=== PATIENT | male | born 1945 | race Caucasian/White ===

== ENCOUNTER 2019-03-22 11:54 | Inpatient (IN) | payer MEDICARE, OTHER ==
[~2019-03-22] VITALS: Ht 182.9 cm; Wt 104.5 kg
[2019-03-22] MEDS ORDERED: normal saline 1000ML IV soln IV ONE (12:35)
[2019-03-22] MEDS ORDERED: CefTRIAXone 2gm/D5W 50ml 50 ML IV ONE (12:35)
[2019-03-22 12:59] LABS: BASOPHILS % (AUTO) 0.2 % (0-1); EOSINOPHILS % (AUTO) 0.3 % (0-6); HEMATOCRIT 40.7 % (42.0-52.0); HEMOGLOBIN 13.6 g/dl (14.0-17.9); LYMPHOCYTES # (AUTO) 1.5 X10'3 (1.1-4.8); LYMPHOCYTES % (AUTO) 8.9 % (21-51); MEAN CORPUSCULAR HEMOGLOBIN 30.4 PG (27.0-31.0); MEAN CORPUSCULAR HGB CONC 33.5 g/dL (33.0-36.5); MEAN CORPUSCULAR VOLUME 90.7 FL (78-98); MEAN PLATELET VOLUME 7.4 FL (7.4-10.4); MONOCYTES # (AUTO) 1.2 X10'3 (0-0.9); MONOCYTES % (AUTO) 7.4 % (2-12); NEUTROPHILS # (AUTO) 13.7 X10'3 (1.8-7.7); NEUTROPHILS % (AUTO) 83.2 % (42-75); PLATELET COUNT 350 X10'3 (140-440); RED BLOOD COUNT 4.49 X10'6 (4.70-6.10); RED CELL DISTRIBUTION WIDTH 14.3 % (11.5-14.5); WHITE BLOOD COUNT 16.5 X10'3 (4.5-11.0)
[2019-03-22 13:01] LABS: CLARITY,URINE TURBID (Clear); COLOR,URINE YELLOW (Yellow); GLUCOSE, URINE NEGATIVE (Neg); KETONES,URINE NEGATIVE (Neg); LEUKOCYTE ESTERASE ,URINE MODERATE (Neg); NITRITES, URINE POSITIVE (Neg); OCCULT BLOOD,URINE LARGE (Neg); PROTEIN,URINE >=300 mg/dl (Neg); UROBILINOGEN,URINE 0.2 E.U/dL (0.2-1.0)
[2019-03-22 13:08] LABS: UA COLLECTION TYPE OTHER
[2019-03-22 13:10] LABS: ALANINE AMINOTRANSFERASE 22 U/L (12-78); ALBUMIN 2.5 G/DL (3.4-5.0); ALBUMIN/GLOBULIN RATIO 0.4 (1.1-1.5); ALKALINE PHOSPHATASE 108 IU/L (46-116); ANION GAP 12 (8-16); ASPARTATE AMINO TRANSFERASE 18 U/L (10-37); BILIRUBIN,TOTAL 0.7 MG/DL (0.1-1.0); BLOOD UREA NITROGEN 93 MG/DL (7-18); BUN/CREATININE RATIO 25.5 (5.4-32.0); CALCIUM 10.3 MG/DL (8.5-10.1); CHLORIDE 100 MMOL/L (99-107); CREATININE 3.64 MG/DL (0.60-1.10); GLUCOSE 129 MG/DL (70-104); MAGNESIUM 2.7 MG/DL (1.5-2.4); SODIUM 136 MMOL/L (135-145); TOTAL PROTEIN 8.8 G/DL (6.4-8.2); eGFR 16 ML/MIN
[2019-03-22 13:12] LABS: PARTIAL THROMBOPLASTIN TIME 27 SECONDS (22-32)
[2019-03-22 13:16] LABS: BACTERIA,URINE 3+ /HPF (Neg); RBC,URINE TNTC /HPF (0-2); WBC,URINE TNTC /HPF (0-4)
[2019-03-22 13:17] LABS: SQUAMOUS EPITHELIAL CELL,UR FEW /LPF (FEW); TRANSITIONAL EPI CELLS,URINE FEW /HPF
[2019-03-22 13:18] LABS: AMORPHOUS URATES 2+; RENAL CELLS, URINE MODERATE /HPF; WBC CLUMPS,URINE FEW /HPF (NEGATIVE)
[2019-03-22 13:19] LABS: MUCUS STRANDS FEW /LPF (Neg)
[2019-03-22] MEDS ORDERED: ondansetron/PF 4mg/2ml inj IV PRN (14:15)
[2019-03-22] MEDS ORDERED: potassium CL 10mEq/100ml bag 100 ML IV PRN (14:15)
[2019-03-22] MEDS ORDERED: magnesium 2GM in 50ml NS 50 ML IV PRN (14:15)
[2019-03-22] MEDS ORDERED: magnesium Cl slow-release 64mg tablet PO PRN (14:15)
[2019-03-22] MEDS ORDERED: potassium Cl 40MEQ/NS 500ml 500 ML IV PRN (14:15)
[2019-03-22] MEDS ORDERED: magnesium hydroxide 30ml (MOM) UD suspension PO PRN (14:15)
[2019-03-22] MEDS ORDERED: acetaminophen 325mg tablet PO PRN ×2 (14:15)
[2019-03-22] MEDS ORDERED: potassium Cl 20 mEq SR tablet PO PRN (14:15)
[2019-03-22] MEDS ORDERED: mag hydrox/Alum hydrox/simeth 30ml oral suspension PO PRN (14:15)
[2019-03-22] MEDS ORDERED: magnesium 4gm in 100ml NS 100 ML IV PRN (14:15)
--- NOTE | 2019-03-22 15:00 | NUR ---
Report received from ED RNYoly.
[2019-03-22 15:30] VITALS: BP 104/43
--- NOTE | 2019-03-22 15:30 | NUR ---
Pt arrived to room 360B from ED.
[2019-03-22] MEDS ORDERED: CITA20TA28 PO (15:48)
[2019-03-22] MEDS ORDERED: KETOCONAZOLE TOP (15:48)
[2019-03-22] MEDS ORDERED: HYDR-4353 PO (15:48)
[2019-03-22] MEDS ORDERED: CALC300T4 PO (15:48)
[2019-03-22] MEDS ORDERED: LOPE2TAB25 PO (15:48)
[2019-03-22] MEDS ORDERED: METO50TA17 PO (15:48)
[2019-03-22] MEDS ORDERED: ATOR40TA PO (15:48)
[2019-03-22] MEDS ORDERED: TRIAMTERENE 37.5 MG PO (15:48)
[2019-03-22] MEDS ORDERED: MULT1TAB74 PO (15:48)
[2019-03-22] MEDS ORDERED: PROP300T2 PO (15:48)
[2019-03-22] MEDS: heparin, porcine 5000 units/ml vial SQ SCH (17:45)
[2019-03-22] MEDS: normal saline 1000ml 1,000 ML IV SCH (17:45)
--- NOTE | 2019-03-22 18:30 | NUR ---
Problems reprioritized. Patient report given, questions answered & plan of care reviewed with VIRAJ Reyez.
--- NOTE | 2019-03-22 18:47 | NUR ---
Patient in room [facility] 360. I have received report from Marjan Alex and had the opportunity to ask questions and assume patient care. Addendum: 03/22/19 at 1848 by Aissatou Miguel RN Amended: Links added.
[2019-03-22 18:50] VITALS: BP 104/43
[2019-03-22] MEDS ORDERED: loperamide 2mg capsule PO PRN (18:50)
[2019-03-22] MEDS ORDERED: calcium carbonate 500mg chew tablet PO PRN (18:50)
--- NOTE | 2019-03-22 20:00 | NUR ---
nephrostomy tube on left side of back with pigtail in place and noted in the bag 400 cc yellow urine and emptied it. dressing to site dry and intact. pt wearing underpants with a pad with no leakage at this time from his bladder.
--- NOTE | 2019-03-22 21:05 | NUR ---
called to check on pt and tolerated well. pt awoke took his medications then dozed back off to sleep.
[2019-03-22] MEDS: atorvastatin 20mg tablet PO SCH (21:17)
[2019-03-22] MEDS: metoprolol tartrate 50mg tablet PO SCH (21:17)
[2019-03-22] MEDS: HYDROcodone/acetaminophen 10/325mg tab PO SCH (21:18)
[2019-03-22] MEDS: propafenone 150mg tablet PO SCH (21:19)
--- NOTE | 2019-03-22 23:00 | NUR ---
pt resting eyes closed without s&s of distress at this time.
[2019-03-23] VITALS: BP 90/37
[2019-03-23] MEDS: normal saline 1000ml 1,000 ML IV SCH ×4 (00:11→23:47)
--- NOTE | 2019-03-23 00:32 | NUR ---
pt awaken for heparin sq dose of medication no complaints at this time.
[2019-03-23] MEDS: heparin, porcine 5000 units/ml vial SQ SCH ×3 (00:37→17:02)
--- NOTE | 2019-03-23 02:30 | NUR ---
pt appears comfortable resting without changes.
[2019-03-23 05:21] LABS: BASOPHILS % (AUTO) 0.4 % (0-1); EOSINOPHILS # (AUTO) 0.1 X10'3 (0-0.9); EOSINOPHILS % (AUTO) 1.1 % (0-6); HEMATOCRIT 32.2 % (42.0-52.0); HEMOGLOBIN 10.7 g/dl (14.0-17.9); LYMPHOCYTES # (AUTO) 1.4 X10'3 (1.1-4.8); LYMPHOCYTES % (AUTO) 10.6 % (21-51); MEAN CORPUSCULAR HEMOGLOBIN 29.9 PG (27.0-31.0); MEAN CORPUSCULAR HGB CONC 33.2 g/dL (33.0-36.5); MEAN PLATELET VOLUME 7.4 FL (7.4-10.4); MONOCYTES # (AUTO) 1.3 X10'3 (0-0.9); MONOCYTES % (AUTO) 9.4 % (2-12); NEUTROPHILS # (AUTO) 10.6 X10'3 (1.8-7.7); NEUTROPHILS % (AUTO) 78.5 % (42-75); PLATELET COUNT 253 X10'3 (140-440); RED BLOOD COUNT 3.57 X10'6 (4.70-6.10); RED CELL DISTRIBUTION WIDTH 13.9 % (11.5-14.5); WHITE BLOOD COUNT 13.5 X10'3 (4.5-11.0)
[2019-03-23 05:44] LABS: ALBUMIN 1.9 G/DL (3.4-5.0); ANION GAP 12 (8-16); BLOOD UREA NITROGEN 74 MG/DL (7-18); BUN/CREATININE RATIO 29.8 (5.4-32.0); CALCIUM 8.4 MG/DL (8.5-10.1); CHLORIDE 106 MMOL/L (99-107); CREATININE 2.48 MG/DL (0.60-1.10); GLUCOSE 92 MG/DL (70-104); MAGNESIUM 2.1 MG/DL (1.5-2.4); POTASSIUM 3.2 MMOL/L (3.5-5.1); SODIUM 141 MMOL/L (135-145); TOTAL CARBON DIOXIDE 23.1 MMOL/L (24-32); eGFR 26 ML/MIN
--- NOTE | 2019-03-23 06:05 | NUR ---
Problems reprioritized. Patient report given, questions answered & plan of care reviewed with Julia Alex. Addendum: 03/23/19 at 0606 by Aissatou Miguel RN Amended: Links added.
--- NOTE | 2019-03-23 07:02 | NUR ---
Patient in room [facility] 360. I have received report from Roxy CALI and had the opportunity to ask questions and assume patient care.
[2019-03-23 07:05] VITALS: BP 129/54
[2019-03-23] MEDS: K and/or MAG REPLACEMENT MC SCH (08:00)
[2019-03-23] MEDS: TRIAMTERENE 37.5 MG PO SCH (08:00)
[2019-03-23] MEDS ORDERED: ketoconazole 2% cream 15gm TP PRN (08:00)
[2019-03-23] MEDS: CefTRIAXone 2gm/D5W 50ml 50 ML IV SCH (08:41)
[2019-03-23] MEDS: citalopram 20mg tablet PO SCH (08:42)
[2019-03-23] MEDS: multivitamins, therapeutics tablet PO SCH (08:42)
[2019-03-23] MEDS: metoprolol tartrate 50mg tablet PO SCH ×2 (08:42→20:54)
[2019-03-23] MEDS: propafenone 150mg tablet PO SCH ×2 (08:42→20:53)
[2019-03-23] MEDS: HYDROcodone/acetaminophen 10/325mg tab PO SCH ×2 (08:42→20:53)
[2019-03-23] MEDS: potassium Cl 20 mEq SR tablet PO PRN ×3 (08:43→20:53)
--- NOTE | 2019-03-23 08:56 | NUR ---
Spoke to patients Herminia she will bring in patients home medication Triamterene and bring to nurses station when she comes in today.
[2019-03-23 11:00] VITALS: BP 104/50
--- NOTE | 2019-03-23 18:35 | NUR ---
Problems reprioritized. Patient report given, questions answered & plan of care reviewed with Wanda CALI.
[2019-03-23 20:00] VITALS: BP 122/42
[2019-03-23] MEDS: lactobacillus rhamnosus 10,000 MMU CELLS/CAPSULE PO SCH (20:53)
[2019-03-23] MEDS: atorvastatin 20mg tablet PO SCH (20:53)
[2019-03-24] VITALS: BP 111/52
[2019-03-24] MEDS: heparin, porcine 5000 units/ml vial SQ SCH ×2 (00:45→08:23)
[2019-03-24 05:21] LABS: BASOPHILS # (AUTO) 0.1 X10'3 (0-0.2); BASOPHILS % (AUTO) 1.2 % (0-1); EOSINOPHILS # (AUTO) 0.2 X10'3 (0-0.9); EOSINOPHILS % (AUTO) 2.1 % (0-6); HEMATOCRIT 32.5 % (42.0-52.0); HEMOGLOBIN 10.8 g/dl (14.0-17.9); LYMPHOCYTES # (AUTO) 1.5 X10'3 (1.1-4.8); LYMPHOCYTES % (AUTO) 15.4 % (21-51); MEAN CORPUSCULAR HEMOGLOBIN 30.2 PG (27.0-31.0); MEAN CORPUSCULAR HGB CONC 33.3 g/dL (33.0-36.5); MEAN CORPUSCULAR VOLUME 90.7 FL (78-98); MEAN PLATELET VOLUME 7.2 FL (7.4-10.4); MONOCYTES % (AUTO) 10.5 % (2-12); NEUTROPHILS # (AUTO) 6.7 X10'3 (1.8-7.7); NEUTROPHILS % (AUTO) 70.8 % (42-75); PLATELET COUNT 217 X10'3 (140-440); RED BLOOD COUNT 3.58 X10'6 (4.70-6.10); RED CELL DISTRIBUTION WIDTH 14.2 % (11.5-14.5); WHITE BLOOD COUNT 9.5 X10'3 (4.5-11.0)
[2019-03-24 05:55] LABS: ALBUMIN 1.9 G/DL (3.4-5.0); ANION GAP 13 (8-16); BLOOD UREA NITROGEN 56 MG/DL (7-18); BUN/CREATININE RATIO 31.6 (5.4-32.0); CALCIUM 8.7 MG/DL (8.5-10.1); CHLORIDE 111 MMOL/L (99-107); CREATININE 1.77 MG/DL (0.60-1.10); GLUCOSE 85 MG/DL (70-104); MAGNESIUM 1.6 MG/DL (1.5-2.4); POTASSIUM 3.4 MMOL/L (3.5-5.1); SODIUM 147 MMOL/L (135-145); TOTAL CARBON DIOXIDE 23.3 MMOL/L (24-32); eGFR 38 ML/MIN
--- NOTE | 2019-03-24 06:40 | NUR ---
Problems reprioritized. Patient report given, questions answered & plan of care reviewed with Julia CALI.
--- NOTE | 2019-03-24 06:54 | NUR ---
Patient in room [facility] 360. I have received report from Wanda CALI and had the opportunity to ask questions and assume patient care.
[2019-03-24 07:00] VITALS: BP 138/51
[2019-03-24] MEDS: K and/or MAG REPLACEMENT MC SCH (08:00)
[2019-03-24] MEDS: TRIAMTERENE 37.5 MG PO SCH (08:00)
[2019-03-24] MEDS: CefTRIAXone 2gm/D5W 50ml 50 ML IV SCH (08:13)
[2019-03-24] MEDS: potassium Cl 20 mEq SR tablet PO PRN (08:14)
[2019-03-24] MEDS: propafenone 150mg tablet PO SCH (08:14)
[2019-03-24 08:15] VITALS: BP_SYST 138
[2019-03-24] MEDS: lactobacillus rhamnosus 10,000 MMU CELLS/CAPSULE PO SCH (08:15)
[2019-03-24] MEDS: metoprolol tartrate 50mg tablet PO SCH (08:15)
[2019-03-24] MEDS: citalopram 20mg tablet PO SCH (08:15)
[2019-03-24] MEDS: HYDROcodone/acetaminophen 10/325mg tab PO SCH (08:15)
[2019-03-24] MEDS: normal saline 1000ml 1,000 ML IV SCH (08:22)
[2019-03-24] MEDS: multivitamins, therapeutics tablet PO SCH (08:22)
[2019-03-24] MEDS ORDERED: LEVO500T2 PO (09:36)
--- NOTE | 2019-03-24 09:56 | NUR ---
Per Dr Mclaughlin hold patients home medication today
--- NOTE | 2019-03-24 11:30 | NUR ---
Patients discharge instructions reviewed with patient and patients at bedside. All questions answered. Patients IV dc'd cannula intact. Patients and state they have all belongings. Patients medication held in pharmacy given to patient on discharge. Patient was taken to the vehicle via wheelchair by [facility].
== END 2019-03-24 11:30 | disposition home or self-care (01) | DRG 682 ==
LOC: ER 11:55 → SUR 3N 15:07 → CMPBEDREQ 19:47
PROVIDERS: ADMIT Hospitalist; ATTEND Internal Medicine
DX: N17.9 Acute kidney failure, unspecified (principal); G93.41 Metabolic encephalopathy; E43 Unspecified severe protein-calorie malnutrition; N39.0 Urinary tract infection, site not specified; E86.0 Dehydration; E87.6 Hypokalemia; F32.9 Major depressive disorder, single episode, unspecified; G89.29 Other chronic pain; E83.52 Hypercalcemia; R03.0 Elevated blood-pressure reading, without diagnosis of hypertension; M54.9 Dorsalgia, unspecified; D64.9 Anemia, unspecified; E78.5 Hyperlipidemia, unspecified; I48.0 Paroxysmal atrial fibrillation; Z79.899 Other long term (current) drug therapy; Z85.118 Personal history of other malignant neoplasm of bronchus and lung; Z87.442 Personal history of urinary calculi; Z90.49 Acquired absence of other specified parts of digestive tract; Z93.6 Other artificial openings of urinary tract status; Z88.1 Allergy status to other antibiotic agents; Z88.2 Allergy status to sulfonamides; Z68.31 Body mass index [BMI] 31.0-31.9, adult
CPT/HCPCS: 36415; 71045; 74176; 80048; 80053; 81001; 83605; 83735; 84145; 85025; 85610; 85730; 87040; 87070; 87077; 87088; 87186; 93005; 96365; 99285; G0378; J0696; J1644; J7030

== ENCOUNTER 2019-04-02 12:35 | Emergency (ER) | payer MEDICARE, OTHER ==
[~2019-04-02] VITALS: Ht 182.9 cm; Wt 100.3 kg
[~2019-04-02 12:35] MED LIST: ATOR40TA PO; CALC300T4 PO; CITA20TA28 PO; HYDR-4353 PO; KETOCONAZOLE TOP; LEVO500T2 PO; LOPE2TAB25 PO; METO50TA17 PO; MULT1TAB74 PO; PROP300T2 PO; TRIAMTERENE 37.5 MG PO
[2019-04-02 13:30] LABS: BASOPHILS # (AUTO) 0.1 X10'3 (0-0.2); BASOPHILS % (AUTO) 1.3 % (0-1); EOSINOPHILS # (AUTO) 0.1 X10'3 (0-0.9); EOSINOPHILS % (AUTO) 1.1 % (0-6); HEMATOCRIT 38.5 % (42.0-52.0); HEMOGLOBIN 13.1 g/dl (14.0-17.9); LYMPHOCYTES # (AUTO) 2.4 X10'3 (1.1-4.8); LYMPHOCYTES % (AUTO) 20.7 % (21-51); MEAN CORPUSCULAR HEMOGLOBIN 30.2 PG (27.0-31.0); MEAN CORPUSCULAR VOLUME 88.7 FL (78-98); MEAN PLATELET VOLUME 7.7 FL (7.4-10.4); MONOCYTES # (AUTO) 1.1 X10'3 (0-0.9); MONOCYTES % (AUTO) 9.4 % (2-12); NEUTROPHILS # (AUTO) 7.9 X10'3 (1.8-7.7); NEUTROPHILS % (AUTO) 67.5 % (42-75); PLATELET COUNT 247 X10'3 (140-440); RED BLOOD COUNT 4.35 X10'6 (4.70-6.10); RED CELL DISTRIBUTION WIDTH 13.7 % (11.5-14.5); WHITE BLOOD COUNT 11.6 X10'3 (4.5-11.0)
[2019-04-02 13:40] LABS: PARTIAL THROMBOPLASTIN TIME 26 SECONDS (22-32)
[2019-04-02 13:53] LABS: CLARITY,URINE CLEAR (Clear); COLOR,URINE YELLOW (Yellow); GLUCOSE, URINE NEGATIVE (Neg); KETONES,URINE NEGATIVE (Neg); LEUKOCYTE ESTERASE ,URINE SMALL (Neg); NITRITES, URINE NEGATIVE (Neg); OCCULT BLOOD,URINE MODERATE (Neg); PROTEIN,URINE 100 mg/dl (Neg); UROBILINOGEN,URINE 0.2 E.U/dL (0.2-1.0)
[2019-04-02 13:54] LABS: UA COLLECTION TYPE OTHER
[2019-04-02 13:57] LABS: ALANINE AMINOTRANSFERASE 29 U/L (12-78); ALBUMIN 2.8 G/DL (3.4-5.0); ALBUMIN/GLOBULIN RATIO 0.6 (1.1-1.5); ALKALINE PHOSPHATASE 77 IU/L (46-116); ANION GAP 7 (8-16); ASPARTATE AMINO TRANSFERASE 23 U/L (10-37); BILIRUBIN,TOTAL 0.6 MG/DL (0.1-1.0); BLOOD UREA NITROGEN 28 MG/DL (7-18); CALCIUM 8.9 MG/DL (8.5-10.1); CHLORIDE 101 MMOL/L (99-107); CREATININE 1.65 MG/DL (0.60-1.10); GLUCOSE 129 MG/DL (70-104); POTASSIUM 3.5 MMOL/L (3.5-5.1); SODIUM 137 MMOL/L (135-145); TOTAL CARBON DIOXIDE 28.7 MMOL/L (24-32); TOTAL PROTEIN 7.5 G/DL (6.4-8.2); eGFR 41 ML/MIN
[2019-04-02] MEDS ORDERED: normal saline 1000ml 1,000 ML IV ONE (14:00)
[2019-04-02 14:01] LABS: BACTERIA,URINE FEW /HPF (Neg); MUCUS STRANDS FEW /LPF (Neg); SQUAMOUS EPITHELIAL CELL,UR FEW /LPF (FEW); TRANSITIONAL EPI CELLS,URINE FEW /HPF
[2019-04-02 14:02] LABS: COARSE GRANULAR CAST 0-3 /LPF (NEGATIVE)
[2019-04-02] MEDS ORDERED: iohexol 300mg/ml 100ml inj. ONE (14:19)
[2019-04-02 17:41] VITALS: BP 128/84
== END 2019-04-02 18:04 | disposition home or self-care (01) ==
LOC: ER 12:39
DX: R42 Dizziness and giddiness (principal); I48.91 Unspecified atrial fibrillation; G89.29 Other chronic pain; Z87.442 Personal history of urinary calculi; Z85.118 Personal history of other malignant neoplasm of bronchus and lung; Z98.890 Other specified postprocedural states; Z88.1 Allergy status to other antibiotic agents; Z88.2 Allergy status to sulfonamides; Z79.2 Long term (current) use of antibiotics; Z79.899 Other long term (current) drug therapy
CPT/HCPCS: 36415; 70450; 71045; 74177; 80053; 81001; 82948; 84484; 85025; 85610; 85730; 87088; 93005; 99284; J7030; Q9967

== ENCOUNTER 2020-05-09 13:44 | Inpatient (IN) | payer OTHER ==
[~2020-05-09] VITALS: Ht 182.9 cm; Wt 104.6 kg
[~2020-05-09 13:44] MED LIST changes: -LEVO500T2 PO; +MULT-620 PO; -MULT1TAB74 PO
[2020-05-09] MEDS ORDERED: calcium chloride inj. 1,000 MG in normal saline 100ml IV soln 90 ML IV ONE (14:15)
[2020-05-09 14:33] LABS: BASOPHILS # (AUTO) 0.1 X10'3 (0-0.2); BASOPHILS % (AUTO) 0.9 % (0-1); EOSINOPHILS # (AUTO) 0.1 X10'3 (0-0.9); EOSINOPHILS % (AUTO) 1.1 % (0-6); HEMATOCRIT 36.9 % (42.0-52.0); LYMPHOCYTES # (AUTO) 1.7 X10'3 (1.1-4.8); MEAN CORPUSCULAR HEMOGLOBIN 29.7 PG (27.0-31.0); MEAN CORPUSCULAR HGB CONC 32.7 g/dL (33.0-36.5); MEAN CORPUSCULAR VOLUME 91.1 FL (78-98); MEAN PLATELET VOLUME 7.9 FL (7.4-10.4); MONOCYTES # (AUTO) 0.7 X10'3 (0-0.9); MONOCYTES % (AUTO) 7.6 % (2-12); NEUTROPHILS # (AUTO) 6.3 X10'3 (1.8-7.7); NEUTROPHILS % (AUTO) 71.4 % (42-75); PLATELET COUNT 207 X10'3 (140-440); RED BLOOD COUNT 4.05 X10'6 (4.70-6.10); RED CELL DISTRIBUTION WIDTH 13.7 % (11.5-14.5); WHITE BLOOD COUNT 8.8 X10'3 (4.5-11.0)
[2020-05-09] MEDS ORDERED: proCHLORperazine 10 MG/2 ml inj IV ONE (14:35)
[2020-05-09] MEDS ORDERED: normal saline 1000ml 1,000 ML IV ONE ×2 (14:35→14:55)
[2020-05-09 14:40] LABS: ALBUMIN 3.2 G/DL (3.4-5.0); ALBUMIN/GLOBULIN RATIO 0.7 (1.1-1.5); ANION GAP 13 (8-16); ASPARTATE AMINO TRANSFERASE 14 U/L (10-37); BILIRUBIN,TOTAL 0.4 MG/DL (0.1-1.0); BLOOD UREA NITROGEN 87 MG/DL (7-18); BUN/CREATININE RATIO 9.7 (5.4-32.0); CALCIUM 8.9 MG/DL (8.5-10.1); CHLORIDE 104 MMOL/L (99-107); CREATININE 9.01 MG/DL (0.60-1.10); GLUCOSE 81 MG/DL (70-104); SODIUM 137 MMOL/L (135-145); TOTAL CARBON DIOXIDE 19.9 MMOL/L (24-32); TOTAL PROTEIN 7.7 G/DL (6.4-8.2); eGFR 6 ML/MIN
[2020-05-09 14:41] LABS: ALANINE AMINOTRANSFERASE 14 U/L (12-78); ALKALINE PHOSPHATASE 80 IU/L (46-116)
[2020-05-09 14:43] LABS: POTASSIUM 6.8 MMOL/L (3.5-5.1)
[2020-05-09] MEDS ORDERED: insulin regular, human 10 units/0.1 ml syringe IV ONE (14:55)
[2020-05-09] MEDS ORDERED: sodium polystyrene sulfonate 15gm/60ml oral suspension PO ONE (14:55)
[2020-05-09] MEDS ORDERED: dextrose 50%-water 50ml dispensing syringe IV ONE (14:55)
[2020-05-09] MEDS ORDERED: albuterol 2.5 MG/3 ML nebule CONTNEB PRN (15:00)
[2020-05-09] MEDS ORDERED: insulin regular, human U-100 3ml vial - multi-dose IV ONE ×2 (15:05)
[2020-05-09] MEDS ORDERED: albuterol 2.5 MG/3 ML nebule CONTNEB STA (16:08)
[2020-05-09 16:32] LABS: CLARITY,URINE CLEAR (Clear); COLOR,URINE YELLOW (Yellow); GLUCOSE, URINE NEGATIVE (Neg); KETONES,URINE NEGATIVE (Neg); LEUKOCYTE ESTERASE ,URINE NEGATIVE (Neg); NITRITES, URINE NEGATIVE (Neg); OCCULT BLOOD,URINE TRACE-INTACT (Neg); PH,URINE 5.5 (4.8-8.0); PROTEIN,URINE NEGATIVE (Neg); UROBILINOGEN,URINE 0.2 E.U/dL (0.2-1.0)
[2020-05-09 16:50] LABS: UA COLLECTION TYPE VOIDED
[2020-05-09 16:57] LABS: BACTERIA,URINE NONE SEEN /HPF (Neg); RBC,URINE 0-2 /HPF (0-2); SQUAMOUS EPITHELIAL CELL,UR FEW /LPF (FEW); WBC,URINE 0-4 /HPF (0-4)
--- NOTE | 2020-05-09 17:29 | NUR ---
breaking ladonna CALI pt is back from br, hooking back up to monitoring
[2020-05-09] MEDS ORDERED: FLUD0.1T PO (17:40)
[2020-05-09] MEDS ORDERED: FURO-150 PO (17:40)
[2020-05-09] MEDS ORDERED: OXYC-150 PO (17:43)
[2020-05-09] MEDS ORDERED: ASPI-611 PO (17:45)
--- NOTE | 2020-05-09 19:35 | NUR ---
Pt. produced approx 1000 ml of urine then condom cath placed.
[2020-05-09] MEDS ORDERED: ondansetron/PF 4mg/2ml inj IV PRN (20:30)
[2020-05-09] MEDS ORDERED: acetaminophen 325mg tablet PO PRN ×2 (20:30)
[2020-05-09] MEDS: normal saline 1000ml 1,000 ML IV SCH (20:55)
[2020-05-09 21:13] LABS: ALANINE AMINOTRANSFERASE 13 U/L (12-78); ALBUMIN 3.1 G/DL (3.4-5.0); ALBUMIN/GLOBULIN RATIO 0.7 (1.1-1.5); ANION GAP 9 (8-16); ASPARTATE AMINO TRANSFERASE 13 U/L (10-37); BILIRUBIN,TOTAL 0.4 MG/DL (0.1-1.0); BLOOD UREA NITROGEN 85 MG/DL (7-18); BUN/CREATININE RATIO 9.7 (5.4-32.0); CALCIUM 9.1 MG/DL (8.5-10.1); CHLORIDE 113 MMOL/L (99-107); CREATININE 8.75 MG/DL (0.60-1.10); GLUCOSE 77 MG/DL (70-104); SODIUM 141 MMOL/L (135-145); TOTAL CARBON DIOXIDE 19.4 MMOL/L (24-32); TOTAL PROTEIN 7.4 G/DL (6.4-8.2); eGFR 6 ML/MIN
[2020-05-09 21:15] LABS: POTASSIUM 6.2 MMOL/L (3.5-5.1)
[2020-05-09 21:33] LABS: ALKALINE PHOSPHATASE 74 IU/L (46-116)
--- NOTE | 2020-05-09 22:40 | NUR ---
pt transferred to 2010. pt is A&O x 4. pt oriented to bed, call light, tv, and visitor policy. pt verbalized understanding of teaching. vital signs are stable. will continue to monitor
--- NOTE | 2020-05-09 22:44 | NUR ---
pt reuses to keep the condom catheter on and insists upon wearing depends. pt informed of the risk of skin breakdown. pt still wants to wear depends. will continue to monitor.
[2020-05-09 23:01] VITALS: BP 180/74
[2020-05-10] VITALS (28 sets, daily range): BP systolic 128–197; BP diastolic 48–89
[2020-05-10 05:24] LABS: BASOPHILS # (AUTO) 0.1 X10'3 (0-0.2); BASOPHILS % (AUTO) 0.6 % (0-1); EOSINOPHILS # (AUTO) 0.1 X10'3 (0-0.9); EOSINOPHILS % (AUTO) 0.9 % (0-6); HEMATOCRIT 35.7 % (42.0-52.0); HEMOGLOBIN 11.7 g/dl (14.0-17.9); LYMPHOCYTES # (AUTO) 1.8 X10'3 (1.1-4.8); LYMPHOCYTES % (AUTO) 20.8 % (21-51); MEAN CORPUSCULAR HEMOGLOBIN 30.1 PG (27.0-31.0); MEAN CORPUSCULAR HGB CONC 32.9 g/dL (33.0-36.5); MEAN CORPUSCULAR VOLUME 91.5 FL (78-98); MONOCYTES # (AUTO) 0.9 X10'3 (0-0.9); NEUTROPHILS # (AUTO) 5.8 X10'3 (1.8-7.7); NEUTROPHILS % (AUTO) 67.7 % (42-75); PLATELET COUNT 188 X10'3 (140-440); RED CELL DISTRIBUTION WIDTH 13.7 % (11.5-14.5); WHITE BLOOD COUNT 8.6 X10'3 (4.5-11.0)
[2020-05-10 05:37] LABS: ALANINE AMINOTRANSFERASE 13 U/L (12-78); ALBUMIN 2.8 G/DL (3.4-5.0); ALBUMIN/GLOBULIN RATIO 0.7 (1.1-1.5); ALKALINE PHOSPHATASE 72 IU/L (46-116); ANION GAP 15 (8-16); ASPARTATE AMINO TRANSFERASE 14 U/L (10-37); BILIRUBIN,TOTAL 0.4 MG/DL (0.1-1.0); BLOOD UREA NITROGEN 79 MG/DL (7-18); BUN/CREATININE RATIO 10.4 (5.4-32.0); CALCIUM 8.5 MG/DL (8.5-10.1); CHLORIDE 110 MMOL/L (99-107); CREATININE 7.59 MG/DL (0.60-1.10); GLUCOSE 67 MG/DL (70-104); MAGNESIUM 3.2 MG/DL (1.5-2.4); PHOSPHORUS 7.8 MG/DL (2.3-4.5); POTASSIUM 5.2 MMOL/L (3.5-5.1); SODIUM 143 MMOL/L (135-145); TOTAL CARBON DIOXIDE 18.5 MMOL/L (24-32); TOTAL PROTEIN 6.9 G/DL (6.4-8.2); eGFR 7 ML/MIN
[2020-05-10] MEDS: normal saline 1000ml 1,000 ML IV SCH ×2 (06:26→14:52)
[2020-05-10] MEDS: aspirin 81mg tab.chew PO SCH (07:39)
[2020-05-10] MEDS: propafenone 150mg tablet PO SCH ×2 (07:39→19:40)
[2020-05-10] MEDS: HYDROcodone/acetaminophen 5mg/325mg tablet PO PRN ×3 (07:40→19:39)
[2020-05-10] MEDS: metoprolol tartrate 50mg tablet PO SCH ×2 (07:40→19:40)
[2020-05-10] MEDS: fludrocortisone acetate 0.1mg tablet PO SCH (07:40)
[2020-05-10] MEDS ORDERED: dextrose ORAL solution 15 GM/59 ML bottle PO PRN ×2 (08:40)
[2020-05-10] MEDS ORDERED: dextrose 50%-water 50ml dispensing syringe IV PRN ×2 (08:40)
[2020-05-10] MEDS ORDERED: OXYC-150 PO (09:46)
[2020-05-10] MEDS: citalopram 20mg tablet PO SCH (09:48)
[2020-05-10] MEDS ORDERED: LIDOcaine 1%/PF 5ML 10 MG/ML VIAL ONE (12:21)
[2020-05-10] MEDS ORDERED: midazolam 2 mg/2 ml injection ONE ×2 (12:21→13:18)
[2020-05-10] MEDS ORDERED: fentaNYL/PF 50MCG/1 ML 2ML syringe ONE (12:22)
[2020-05-10] MEDS ORDERED: iohexol 300 MG/1 ML 50ml polymer ONE (12:23)
--- NOTE | 2020-05-10 14:30 | NUR ---
Pt back from Angio. VSS. Serous / sang clear urine to Nephrosotmy Dressing to R side CDI. Pt continues to have the bloody clear urine from his penis as well. He states that when he had the other kidney done he continued to have uncontrolled urine at that time too.
--- NOTE | 2020-05-10 18:30 | NUR ---
Patient in room CICU 2010. I have received report from Lolis CALI and had the opportunity to ask questions and assume patient care.
--- NOTE | 2020-05-10 18:45 | NUR ---
Assessment completed on patient. Patient stable at this time. POC discussed with patient. Patient requests depends for incontinence and able to notify nurse when needing to be changed. Skin in tact. Patient also requests not to wear a gown at this time. Will continue to monitor closely.
[2020-05-10] MEDS: atorvastatin 20mg tablet PO SCH (21:31)
[2020-05-11] VITALS (16 sets, daily range): BP systolic 120–175; BP diastolic 44–77
[2020-05-11] MEDS: HYDROcodone/acetaminophen 5mg/325mg tablet PO PRN ×4 (01:25→20:26)
[2020-05-11] MEDS: normal saline 1000ml 1,000 ML IV SCH ×3 (01:25→22:11)
[2020-05-11 05:49] LABS: BASOPHILS # (AUTO) 0.1 X10'3 (0-0.2); BASOPHILS % (AUTO) 0.7 % (0-1); EOSINOPHILS # (AUTO) 0.2 X10'3 (0-0.9); EOSINOPHILS % (AUTO) 2.1 % (0-6); HEMATOCRIT 34.2 % (42.0-52.0); HEMOGLOBIN 11.2 g/dl (14.0-17.9); LYMPHOCYTES # (AUTO) 1.8 X10'3 (1.1-4.8); LYMPHOCYTES % (AUTO) 19.5 % (21-51); MEAN CORPUSCULAR HEMOGLOBIN 30.2 PG (27.0-31.0); MEAN CORPUSCULAR HGB CONC 32.7 g/dL (33.0-36.5); MEAN CORPUSCULAR VOLUME 92.5 FL (78-98); MONOCYTES # (AUTO) 1.1 X10'3 (0-0.9); MONOCYTES % (AUTO) 12.2 % (2-12); NEUTROPHILS # (AUTO) 6.1 X10'3 (1.8-7.7); NEUTROPHILS % (AUTO) 65.5 % (42-75); PLATELET COUNT 179 X10'3 (140-440); RED CELL DISTRIBUTION WIDTH 13.9 % (11.5-14.5); WHITE BLOOD COUNT 9.3 X10'3 (4.5-11.0)
[2020-05-11 06:02] LABS: ALANINE AMINOTRANSFERASE 12 U/L (12-78); ALBUMIN 2.8 G/DL (3.4-5.0); ALBUMIN/GLOBULIN RATIO 0.7 (1.1-1.5); ALKALINE PHOSPHATASE 66 IU/L (46-116); ANION GAP 11 (8-16); ASPARTATE AMINO TRANSFERASE 13 U/L (10-37); BILIRUBIN,TOTAL 0.5 MG/DL (0.1-1.0); BLOOD UREA NITROGEN 62 MG/DL (7-18); BUN/CREATININE RATIO 10.9 (5.4-32.0); CALCIUM 8.2 MG/DL (8.5-10.1); CHLORIDE 112 MMOL/L (99-107); CREATININE 5.69 MG/DL (0.60-1.10); GLUCOSE 77 MG/DL (70-104); MAGNESIUM 2.5 MG/DL (1.5-2.4); PHOSPHORUS 6.1 MG/DL (2.3-4.5); POTASSIUM 5.5 MMOL/L (3.5-5.1); SODIUM 144 MMOL/L (135-145); TOTAL CARBON DIOXIDE 21.4 MMOL/L (24-32); TOTAL PROTEIN 6.6 G/DL (6.4-8.2); eGFR 10 ML/MIN
--- NOTE | 2020-05-11 06:19 | NUR ---
Problems reprioritized. Patient report given, questions answered & plan of care reviewed with Marissa CALI.
[2020-05-11] MEDS: citalopram 20mg tablet PO SCH (07:54)
[2020-05-11] MEDS: propafenone 150mg tablet PO SCH ×2 (07:54→21:07)
[2020-05-11] MEDS: fludrocortisone acetate 0.1mg tablet PO SCH (07:54)
[2020-05-11] MEDS: aspirin 81mg tab.chew PO SCH (07:55)
[2020-05-11] MEDS: metoprolol tartrate 50mg tablet PO SCH ×2 (07:55→20:26)
[2020-05-11] MEDS ORDERED: amLODIPine 5mg tablet PO ONE (09:45)
--- NOTE | 2020-05-11 10:40 | NUR ---
Dr. De Jesus at bedside, new order for renal diet and PT eval and treat.
--- NOTE | 2020-05-11 14:23 | NUR ---
Report called to VIRAJ Sneed
--- NOTE | 2020-05-11 14:23 | NUR ---
Patient in room CICU 2010. I have received report from Yaz and had the opportunity to ask questions and assume patient care.
--- NOTE | 2020-05-11 15:17 | NUR ---
Called and gave report to Laury Giordano RN. All questions addressed
--- NOTE | 2020-05-11 15:24 | NUR ---
Patient in room CICU 2010. I have received report from VIRAJ Mukherjee and had the opportunity to ask questions and awaiting pt's arrival to bed 3023A.
--- NOTE | 2020-05-11 15:57 | NUR ---
Patient arrived from CICU, ambulated with standby assistance to bed. Alert and Oriented x4. BLL, SRx2, CL within reach, non skid socks on. First set of vitals complete. 2 RN skin check complete. Transfer to Transfer intervention complete.
--- NOTE | 2020-05-11 18:37 | NUR ---
Patient in room PCU 3023. I have received report from Laury CALI and had the opportunity to ask questions and assume patient care.
--- NOTE | 2020-05-11 18:44 | NUR ---
Problems reprioritized. Patient report given, questions answered & plan of care reviewed with VIRAJ Marion. Pt comfortable, all pt needs met at this time.
[2020-05-11] MEDS: atorvastatin 20mg tablet PO SCH (20:27)
--- NOTE | 2020-05-12 01:02 | NUR ---
Patient converted into Atrial fibrillation with the rate in the 70s. Nurse Specialist October notified. No new orders at this time.
[2020-05-12 01:18] VITALS: BP 134/55
[2020-05-12 02:00] VITALS: BP 157/76
[2020-05-12] MEDS: HYDROcodone/acetaminophen 5mg/325mg tablet PO PRN ×2 (02:44→08:20)
[2020-05-12 05:28] LABS: BASOPHILS # (AUTO) 0.1 X10'3 (0-0.2); BASOPHILS % (AUTO) 0.6 % (0-1); EOSINOPHILS # (AUTO) 0.2 X10'3 (0-0.9); EOSINOPHILS % (AUTO) 2.5 % (0-6); HEMATOCRIT 34.2 % (42.0-52.0); HEMOGLOBIN 11.3 g/dl (14.0-17.9); LYMPHOCYTES # (AUTO) 1.9 X10'3 (1.1-4.8); LYMPHOCYTES % (AUTO) 20.7 % (21-51); MEAN CORPUSCULAR HGB CONC 33.1 g/dL (33.0-36.5); MEAN CORPUSCULAR VOLUME 90.5 FL (78-98); MEAN PLATELET VOLUME 7.8 FL (7.4-10.4); MONOCYTES # (AUTO) 1.1 X10'3 (0-0.9); MONOCYTES % (AUTO) 11.5 % (2-12); NEUTROPHILS # (AUTO) 5.9 X10'3 (1.8-7.7); NEUTROPHILS % (AUTO) 64.7 % (42-75); PLATELET COUNT 176 X10'3 (140-440); RED BLOOD COUNT 3.78 X10'6 (4.70-6.10); RED CELL DISTRIBUTION WIDTH 13.4 % (11.5-14.5); WHITE BLOOD COUNT 9.1 X10'3 (4.5-11.0)
[2020-05-12 05:37] LABS: ALANINE AMINOTRANSFERASE 12 U/L (12-78); ALBUMIN 2.6 G/DL (3.4-5.0); ALBUMIN/GLOBULIN RATIO 0.6 (1.1-1.5); ALKALINE PHOSPHATASE 63 IU/L (46-116); ANION GAP 11 (8-16); ASPARTATE AMINO TRANSFERASE 13 U/L (10-37); BILIRUBIN,TOTAL 0.5 MG/DL (0.1-1.0); BLOOD UREA NITROGEN 42 MG/DL (7-18); BUN/CREATININE RATIO 11.1 (5.4-32.0); CHLORIDE 111 MMOL/L (99-107); CREATININE 3.77 MG/DL (0.60-1.10); GLUCOSE 92 MG/DL (70-104); MAGNESIUM 1.8 MG/DL (1.5-2.4); PHOSPHORUS 4.4 MG/DL (2.3-4.5); POTASSIUM 3.5 MMOL/L (3.5-5.1); SODIUM 145 MMOL/L (135-145); TOTAL CARBON DIOXIDE 22.7 MMOL/L (24-32); TOTAL PROTEIN 6.7 G/DL (6.4-8.2); eGFR 16 ML/MIN
--- NOTE | 2020-05-12 06:45 | NUR ---
Patient in room PCU 3023. I have received report from VIRAJ Marion and had the opportunity to ask questions and assume patient care.
--- NOTE | 2020-05-12 06:46 | NUR ---
Problems reprioritized. Patient report given, questions answered & plan of care reviewed with Patricia CALI.
[2020-05-12 07:00] VITALS: BP 147/77
[2020-05-12] MEDS: propafenone 150mg tablet PO SCH ×2 (08:00→10:58)
[2020-05-12] MEDS ORDERED: heparin, porcine 5000 units/ml vial SQ SCH (08:00)
[2020-05-12] MEDS ORDERED: amLODIPine 5mg tablet PO SCH (08:00)
[2020-05-12 08:14] VITALS: BP_SYST 161
[2020-05-12] MEDS: citalopram 20mg tablet PO SCH (08:14)
[2020-05-12] MEDS: metoprolol tartrate 50mg tablet PO SCH (08:14)
[2020-05-12] MEDS: aspirin 81mg tab.chew PO SCH (08:15)
[2020-05-12] MEDS ORDERED: fludrocortisone acetate 0.1mg tablet PO SCH (08:30)
[2020-05-12] MEDS ORDERED: NOR5T PO (11:00)
--- NOTE | 2020-05-12 12:47 | NUR ---
Pt stable for discharge per MD orders. Reviewed and educated pt on discharge paperwork and instructions. Answered any questions or concerns pt may have. 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 Tele monitor removed. PIV removed. Belongings sent with pt. Pt sent downstairs to private vehicle via wheelchair by aid.
== END 2020-05-12 12:40 | disposition home or self-care (01) | DRG 694 ==
LOC: ER 13:45 → ED HOLD 20:26 → CICU 2S 22:27 → PCU 3S 05-11 15:27
PROVIDERS: ADMIT Internal Medicine Critical Care Medicine; ATTEND Internal Medicine Critical Care Medicine
PROC: 0T9330Z Drainage of Right Kidney Pelvis with Drainage Device, Percutaneous Approach (ICD-10-PCS; principal; 2020-05-10)
PROC: BT111ZZ Fluoroscopy of Right Kidney using Low Osmolar Contrast (ICD-10-PCS; 2020-05-10)
DX: N13.39 Other hydronephrosis (principal); N17.9 Acute kidney failure, unspecified; E87.5 Hyperkalemia; I48.91 Unspecified atrial fibrillation; N36.8 Other specified disorders of urethra; G89.29 Other chronic pain; M54.9 Dorsalgia, unspecified; Z85.118 Personal history of other malignant neoplasm of bronchus and lung; Z87.442 Personal history of urinary calculi; Z90.5 Acquired absence of kidney; Z90.79 Acquired absence of other genital organ(s); Z92.3 Personal history of irradiation; Z88.2 Allergy status to sulfonamides; Z79.899 Other long term (current) drug therapy; Z79.82 Long term (current) use of aspirin
CPT/HCPCS: 36415; 50432; 71045; 74176; 76775; 80053; 81001; 82948; 83735; 84100; 85025; 87081; 93005; 94640; 94644; 94760; 96365; 96375; 97161; 97530; 99152; 99153; 99291; C1729; C1769; G0378; J0780; J1644; J1815; J2250; J3010; J7030; Q9967

== ENCOUNTER 2025-06-20 16:02 | Inpatient (IN) | payer OTHER ==
[~2025-06-20] VITALS: Ht 182.9 cm; Wt 86.0 kg
[~2025-06-20 16:02] MED LIST changes: +ASPI-611 PO; -CALC300T4 PO; +CITA-178 PO; -CITA20TA28 PO; +FLUD0.1T PO; +FURO-150 PO; -HYDR-4353 PO; -KETOCONAZOLE TOP; -LOPE2TAB25 PO; -MULT-620 PO; +NOR5T PO; +OXYC-150 PO; -PROP300T2 PO; -TRIAMTERENE 37.5 MG PO; +[UNRECOGNIZED DRUG - CODE] PO
--- NOTE | 2025-06-20 16:26 | Physician Documentation ---
History of Present Illness Chief Complaint: Abdominal Pain Stated Complaint: ABDOMINAL PAIN Time Seen by MD: 16:23 OK to notify your PCP?: Yes Primary Medical Doctor: gagan Source: patient Exam Limitations: no limitations HPI This is an 80-year-old male who presents with abdominal pain, reports that this has been present for about a week. His , a former ICU nurse, took him to the OR clinic last week. He had a KUB done that reportedly showed constipation. She has been treating him with lactulose, docusate, and encouraging him to be active in an attempt to help move his bowels. He is having bowel movements now, but also complains of a couple falls and feeling overall unwell. Hx of appendectomy but does still have a gallbladder. Pain is located to the lower abdomen bilat, but pain is more notable on the left than the right. Hx chronic pain, takes oxycodone regularly. Had recent CT head and xrays after falls, all normal per his . Hx afib on Eliquis, CKD with one kidney (right). Non-orthostatic hypotension on midrinone and fludricortisone. Hx TURP for prostate cancer. OR recently stopped Eliquis due to his falls. Medications per his as follows: Probiotic Reglan 5 mg TID meals Pantoprazole once daily Lactulose 45 ml po QHS Percocet 10/325 1 tab po 5x daily Midrinone 5 mg BID Fludricortisone 0.1 mg Celexa 10 mg daily Furosemide 40 mg daily Metoprolol succinate 1/2 of a 25 mg tablet daily Propafenone 300 mg po TID Day of Onset: Jun 20, 2025 Medication Reconciliation Allergies: Coded Allergies: ampicillin (Verified Allergy, Intermediate, RASH, 03/22/19) sulfamethoxazole (Verified Allergy, Intermediate, N/V RASH, 03/22/19) trimethoprim (Verified Allergy, Intermediate, N/V RASH, 03/22/19) cephalexin (Unverified Allergy, Unknown, 06/20/25) ciprofloxacin (Unverified Allergy, Unknown, 06/20/25) Scheduled Amlodipine Besylate (Amlodipine Besylate), 5 MG PO DAILY Aspirin (Aspir 81), 1 TAB PO DAILY, (Reported) Atorvastatin Calcium* (Lipitor*), 1 TAB PO HS, (Reported) Citalopram Hydrobromide* (Celexa*), 1 TAB PO DAILY, (Reported) Fludrocortisone Acetate (Fludrocortisone Acetate), 1 TABLET PO DAILY, (Reported) Furosemide (Lasix), 1 TAB PO DAILY, (Reported) Metoprolol Tartrate* (Metoprolol Tartrate*), 1 TAB PO Q12H, (Reported) Propafenone HCl (Propafenone HCl), 1 TAB PO BID, (Reported) Scheduled PRN Oxycodone HCl/Acetaminophen (Percocet 10-325 mg Tablet), 1 TAB PO 5XD PRN for moderate or severe pain, (Reported) Past Medical History Past Medical History: Atrial Fibrillation, Kidney Stones, Renal Disease, Chronic Back Pain, Lung Cancer Past Surgical History: abdominal surgery, appendectomy, other Other Past Surgical History: prostate sx, urostomy Alcohol Use: None Drug Use: none Lives with: Spouse Lives In: Home Occupation: disabled Review of Systems All Other Systems at this time: Reviewed and Negative ROS As stated above in the HPI, otherwise all systems are reviewed and negative. Physical Exam Vital Signs: RN Vital Signs have been reviewed: Yes, Temperature: 98.1, Heart Rate: 87, Respiratory Rate: 16, BP: 192/85, Pulse Oximetry: 95, Weight: 86.000 Oxygen Flow Rate: 0 Physical Exam VITALS: Reviewed and as above. GENERAL: Alert, nontoxic appearing, no apparent distress. HEENT: RESPIRATORY: No increased work of breathing, no respiratory distress, speaking in full clear sentences CHEST: CV: BACK: GI: MUSCULOSKELETAL: SKIN: NEURO: PSYCH: Roman Godoy MD 06/20/25 20:06 General: The patient is well developed, well nourished, nontoxic appearing and is in no acute distress. Skin: [place], warm and dry with no rashes. HEENT: Head was normocephalic and atraumatic. Eyes - pupils equal, round, reactive to light and accommodation. Extraocular movements were intact. Conjunctivae were nonicteric. The mouth and oropharynx were clear with moist mucous membranes. There were no pharyngeal exudates or erythema. Neck: Supple and nontender. There was no jugular venous distention, lymphadeno seun, thyromegaly or masses. Chest: Clear to auscultation bilaterally without wheezes, rales or rhonchi. No accessory muscle use. Heart: Rate regular and rhythmic. S1, S2. No murmurs. Palpation of the chest wall was normal. Abdomen: Right upper quadrant point tenderness with hyperactive bowel sounds, multiple abdominal scars. nondistended. Involuntary guarding or rebound. No hepatosplenomegaly or palpable masses. Extremities: No cyanosis, clubbing or edema. The patient moves all extrem ities. Pulses were equal and symmetric. Neurologic: Motor sensory grossly intact Psychologic: The patient was oriented to person, place and time. The patient demonstrated appropriate judgement and insight. Progress Progress Note 1830: End of my shift transition of care to Dr. Godoy. He recommends two grams of IV magnesium although Mg+ level currently pending. K+ was found to be low at 2.6 and 40 meq KCL has already been ordered. 7:45 p.m. discussed the case with the hospitalist who kindly agreed to admit the patient for further workup and care. Protonix was given. Ultrasound of the right upper quadrant was ordered. Patient has hyperactive bowel sounds with point tenderness in the right upper quadrant as well as some diffuse involuntary guarding. Results/Orders Reviewed/noted all lab results: Yes Results/Orders Vital Signs 06/20/25 16:14 Temp 98.1 Pulse 87 Resp 16 B/P (MAP) 192/85 Pulse Ox 95 O2 Flow Rate 0 EKG/XRAY/CT/US/VASC/MRI EKG : Additional Comment 1816: EKG interpreted to show RSR rate of 87, no ectopy. QTC prolonged at [address] segment elevation. CT : Interpreted By: radiologist CT: abdomen/pelvis With Contrast?: No Impression Procedure: [facility] Study Date and Requested Time: 06/20/2025 05:57 PM History: lower abd pain Comparison: None Dose: CTDI: 18.66 mGy DLP: 1072.8 mGycm Technique: Multiplanar images obtained through the abdomen and pelvis without contrast Findings: Elevated right hemidiaphragm. Small right-sided pleural effusion with right basilar cyst. [id number] cardiomegaly with trace pericardial effusion. Mild hepatomegaly. Otherwise, liver, spleen, pancreas and adrenal glands are unremarkable. Cholelithiasis with moderate distention of the gallbladder. No CT evidence of acute cholecystitis. The left kidney appears to be surgically absent. 4 mm right renal lower pole calculus. Mild right hydronephrosis with no obstructing calculus noted. Urinary bladder is decompressed. The prostate is not visualized with surgical clips within the lower pelvis and pelvic sidewall. Question prostatectomy. Mild gastric wall thickening. Small bowel loops are unremarkable. There appears to be Postsurgical changes of partial right hemicolectomy. Mild distal rectal wall thickening. Small to moderate amount of fecal material within the colon. The colon is otherwise unremarkable. No evidence of intraperitoneal free air or free fluid. No evidence of aortic aneurysm. Moderate to heavy atherosclerotic calcification of the aorta and bilateral iliacs. No significant lymphadenopathy. Penile pump is noted with a reservoir within the left paramedian anterior pelvis. Small fat containing left inguinal hernia. Small fat containing umbilical hernia. Minimal body wall edema. Multilevel severe degenerative changes of the lumbar spine. Impression: Limited noncontrast imaging. Mild gastric wall thickening with a Mild rectal wall thickening which is most likely from inadequate distention. Mild gastritis and proctitis can not be completely excluded. Cholelithiasis without evidence for acute cholecystitis. Nonobstructing right renal calculus. Mild right [place] nephrosis with no obstructing calculus noted. [id number] cardiomegaly with trace pericardial effusion. Small right-sided pleural effusion with associated atelectasis. Electronically Signed by:TONIA NASCIMENTO DO Date & Time: 06/20/251909 Dictated by: TONIA NASCIMENTO DO Dictation date and time: 06/20/251909 Medical Decision Making Findings MSE performed in triage and patient returned to ED lobby by nursing staff to await available ED room Additional Comments This is an 80 yr old male with multiple complex health conditions including solitary right kidney with CKD, afib typically on Eliquis, Non-orthostatic hypotension on midrinone and fludricortisone, prostate cancer s/p TURP with resultant incontinence, chronic pain syndrome on Percocet 5-325 mg po 5x daily. 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 She notes that he has been struggling with abd pain x the last week. KUB at the OR showed constipation. She has been working on a bowel program at home and he has had normal bowel movements as recently as today. She is also noting that he has had issues with weakness and falls. Reportedly CT head and xrays were negative but eliquis stopped due to these recurrent falls. As of 1829, he is found to be hypokalemic and hypertensive. Lopressor 5 mg IVP ordered along with a dose of his typically used Percocet 10/325 mg po x 1 for pain. KCL 40 meq and Magnesium 2 grams IV ordered. End of my shift with transition of care to [facility] at 1830. Departure Disposition: ADMITTED INPATIENT Admitted to Inpatient Unit: yes, to hospitalist Admission Level of Care: Med/Surg with Tele Impression: Primary Impression: Abdominal pain Qualified Codes: R10.11 - Right upper quadrant pain Additional Impressions: Hypokalemia Prolonged QT interval Condition: Guarded Referrals: NO PRIMARY CARE PROVIDER (PCP) Education Educated: Patient, Family Educated regarding: diagnosis Critical Care Note Total Time (mins): 30 Critical Care Note The very real possibility of a deterioration of this patient's condition required the highest level of my preparedness for sudden, emergent intervention. I provided critical care services, which included medication orders, frequent reevaluations of the patient's condition and response to treatment, ordering and reviewing test results, and discussing the case with various consultants. Excludes time spent performing separately billable procedures. The critical care time associated with the care of the patient was. 30 minutes for multiple re- evaluation of the patient and current potassium riders for a critically low potassium level as well as a prolonged QTC. Signature Scribe Signature: no scribe Attestation: The note accurately reflects work and decisions made by me.Arpita Rodrigez NP 06/20/25 18:18 CHARLIE MCKINNEY Jun 20, 2025 16:26 ARPITA CLAUDIO NP Jun 20, 2025 17:39 ROMAN GODOY MD Jun 20, 2025 19:48
[2025-06-20 17:46] LABS: MEAN PLATELET VOLUME 6.7 FL (7.4-10.4); RED CELL DISTRIBUTION WIDTH 18.3 % (11.5-14.5)
[2025-06-20 17:55] LABS: CREATININE 1.15 MG/DL (0.60-1.10); TOTAL CARBON DIOXIDE 33.6 MMOL/L (24-32); eCRCL 55 ML/MIN; eGFR 61 ML/MIN
[2025-06-20] MEDS: potassium Cl 20 mEq SR tablet PO ONE (18:11)
--- NOTE | 2025-06-20 18:19 | ELECTROCARDIOGRAPH REPORT ---
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 Roman Godoy Measurements Intervals [place] Rate: 87 P: 20 NV: 224 QRS: -10 QRSD: 100 T: 7 QT: 452 QTc: 544 Interpretive Statements Sinus rhythm Prolonged NV interval Left ventricular hypertrophy Nonspecific T abnormalities, anterior leads Prolonged QT interval Electronically Signed On 06-20-2025 19:35:[address] Roman Godoy Please click the below link to view image of tracing.
[2025-06-20] MEDS: normal saline 1000ML IV soln IVB ONE (18:35)
[2025-06-20 18:44] LABS: LEUKOCYTE ESTERASE ,URINE NEGATIVE (Neg); NITRITES, URINE NEGATIVE (Neg); OCCULT BLOOD,URINE SMALL (Neg)
[2025-06-20 18:51] LABS: UA COLLECTION TYPE CLN CATCH MIDSTREAM
[2025-06-20] MEDS: metoprolol tartrate 1mg/ml inj IV ONE (18:51)
[2025-06-20] MEDS: oxyCODONE IR 5mg (immed. release) tablet PO ONE (18:52)
[2025-06-20 18:53] LABS: MUCUS STRANDS FEW /LPF (Neg); SQUAMOUS EPITHELIAL CELL,UR FEW /LPF (FEW)
[2025-06-20] MEDS: magnesium sulf-water 2g/50mL 50 ML IV ONE (19:08)
--- NOTE | 2025-06-20 19:13 | RADIOLOGY REPORT ---
Procedure: CT CT [facility] Study Date and Requested Time: 05:57 PM History: lower abd pain Comparison: None Dose: CTDI: 18.66 mGy DLP: 1072.8 mGycm Technique: Multiplanar images obtained through the abdomen and pelvis without contrast Findings: Elevated right hemidiaphragm. Small right-sided pleural effusion with right basilar cyst. Mild-to-mo derate cardiomegaly with trace pericardial effusion. Mild hepatomegaly. Otherwise, liver, spleen, pancreas and adrenal glands are unremarkable. Cholelithiasis with moderate distention of the gallbladder. No CT evidence of acute cholecystitis. The left kidney appears to be surgically absent. 4 mm right renal lower pole calculus. Mild right hyd ronephrosis with no obstructing calculus noted. Urinary bladder is decompressed. The prostate is not visualized with surgical clips within the lower pelvis and pelvic sidewall. Question prostatectomy. Mild gastric wall thickening. Small bowel loops are unremarkable. There appears to be Postsurgical ch anges of partial right hemicolectomy. Mild distal rectal wall thickening. Small to moderate amount of fecal material within the colon. The colon is otherwise unremarkable. No evidence of intraperitoneal free air or free fluid. No evidence of aortic aneurysm. Moderate to heavy atherosclerotic calcification of the aorta and harish ateral iliacs. No significant lymphadenopathy. Penile pump is noted with a reservoir within the left paramedian anterior pelvis. Small fat containin g left inguinal hernia. Small fat containing umbilical hernia. Minimal body wall edema. Multilevel se ramos degenerative changes of the lumbar spine. Impression: Limited noncontrast imaging. Mild gastric wall thickening with a Mild rectal wall thickening which is most likely from inadequate distention. Mild gastritis and proctitis can not be completely excluded. Cholelithiasis without evidence for acute cholecystitis. Nonobstructing right renal calculus. Mild right [place] nephrosis with no obstructing calculus noted. Yerx-ag-uzgmaame cardiomegaly with trace pericardial effusion. Small right-sided pleural effusion with associated atelectasis.
[2025-06-20] MEDS ORDERED: pantoprazole 40mg IV 80 MG in normal saline 100ml IV soln 100 ML IV ONE ×2 (19:55→20:50)
[2025-06-20] MEDS: normal saline 1000ml 1,000 ML IV ONE (20:35)
[2025-06-20] MEDS ORDERED: mag hydrox/Alum hydrox/simeth 30ml oral suspension PO PRN (20:40)
[2025-06-20] MEDS ORDERED: magnesium hydroxide 30ml (MOM) UD suspension PO PRN (20:40)
[2025-06-20] MEDS ORDERED: magnesium sulf-water 2g/50mL 50 ML IV PRN (20:40)
[2025-06-20] MEDS ORDERED: magnesium sulf-water 4G/100mL 100 ML IV PRN (20:40)
[2025-06-20] MEDS ORDERED: magnesium Cl slow-release 64mg tablet PO PRN (20:40)
[2025-06-20] MEDS: normal saline 1000ml 1,000 ML IV SCH (20:40)
[2025-06-20] MEDS ORDERED: potassium Cl 40MEQ/1/2NS 520ml 520 ML IV PRN (20:40)
[2025-06-20 20:46] LABS: CREATININE 1.18 MG/DL (0.60-1.10); TOTAL CARBON DIOXIDE 30.3 MMOL/L (24-32); eCRCL 54 ML/MIN; eGFR 59 ML/MIN
--- NOTE | 2025-06-20 21:03 | HISTORY AND PHYSICAL-Residence ---
History & Physical Providers to CC Resident Creating Document: CHECO LEMUS, RES ~ History of Present Illness Primary Medical Doctor: gagan Reason for Admit\Complaint: Abdominal pain History of Present Illness This is a 80-year-old male with past medical history of prostate cancer s/p radical prostatectomy with penile implant and placement of artificial bladder sphincter, left nephrectomy in 2019, history of lung cancer with lobectomy 5 years ago, atrial fibrillation, orthostatic hypotension, kidney stones came to the ER with a chief complaint of abdominal pain. The is at the bedside who assisted with the history taking. The pain is mainly located in the periumbilical region, started three weeks ago. Describes the pain as sharp/cramping, nonradiating, graded 8/10, intermittent. The pain is associated with food intake, occurring almost immediately after the food intake improving 30 minutes later. Since one week the patient reports increasing intensity and episodes of pain. He has associated nausea and had three episodes of vomiting today. Denies any fever. Went to the urgent care, abdominal x-ray was done which showed large amount of stools, constipation improved with lactulose. Last bowel movement was today. Has dark-colored stools, on iron supplementation. The reported that patient had three falls last week, were mechanical falls, she stopped Eliquis for one week. Currently the patient complains of lightheadedness. Allergies: Coded Allergies: ampicillin (Verified Allergy, Intermediate, RASH, 03/22/19) sulfamethoxazole (Verified Allergy, Intermediate, N/V RASH, 03/22/19) trimethoprim (Verified Allergy, Intermediate, N/V RASH, 03/22/19) cephalexin (Unverified Allergy, Unknown, 06/20/25) ciprofloxacin (Unverified Allergy, Unknown, 06/20/25) Home Medications Home Medications Active Amlodipine Besylate 5 Mg Tablet 5 Mg PO DAILY 30 Days Reported Percocet 10-325 mg Tablet (Oxycodone HCl/Acetaminophen) 1 Each Tablet 1 Tab PO 5XD PRN MDD 4 Tablet(s) 5 Days Aspir 81 (Aspirin) 81 Mg Tablet.dr 1 Tab PO DAILY 30 Days Fludrocortisone Acetate 0.1 Mg Tablet 1 Tablet PO DAILY Lasix (Furosemide) 20 Mg Tablet 1 Tab PO DAILY 30 Days Celexa* (Citalopram Hydrobromide) 20 Mg Tablet 1 Tab PO DAILY Lipitor* (Atorvastatin Calcium) 40 Mg Tablet 1 Tab PO HS Propafenone HCl 300 Mg Tablet 1 Tab PO BID Metoprolol Tartrate 50 Mg Tablet 1 Tab PO Q12H Past Medical History Past Medical History prostate cancer s/p radical prostatectomy with penile implant and placement of artificial bladder sphincter, left nephrectomy in 2019, history of lung cancer with lobectomy 5 years ago, atrial fibrillation, orthostatic hypotension, kidney stones Chronic back and neck pain Past Surgical History Surgical History Comment Radical prostatectomy with penile implant Left nephrectomy in 2019 Lung lobectomy Bilateral knee surgery Appendectomy Past Social History Social History Comment Quit smoking in 1994 Denies alcohol use and drug use Uses a walker to move around Lives with his Alcohol Use: None Drug Use: None Lives with: Spouse Lives In: Home Occupation: disabled ROS All Other Systems: Reviewed and Negative Constitutional: Reports: weakness Eyes: Denies: no symptoms reported, see HPI, pain, discharge, blurred vision, double vision, itching, photophobia, redness, tearing, other ENT: Denies: no symptoms reported, see HPI, ear pain, ear bleeding, ear discharge, hearing loss, ear ringing, nose pain, nose bleeding, nose congestion, nose discharge, throat pain, throat swelling, voice change, mouth pain, mouth bleeding, mouth swelling, other Respiratory: Denies: no symptoms reported, see HPI, cough, orthopnea, shortness of breath, SOB with exertion, SOB at rest, stridor, wheezing, hemoptysis, pain with breathing, other Cardiovascular: Denies: no symptoms reported, see HPI, chest pain, left arm pain, diaphoresis, lightheadedness, syncope, edema, palpitations, irregular heart rate, other Gastrointestinal: Reports: abdominal pain, nausea, vomiting Genitourinary: Denies: no symptoms reported, see HPI, burning, discharge, dysuria, frequency, flank pain, hematuria, incontinence, pain, decreased urine output, urgency, other Male Genitalia: Denies: no symptoms reported, see HPI, penile discharge, penile sore, testicular pain, testicular swelling, other Neurological: Denies: no symptoms reported, see HPI, speech problem, headache, dizziness, fainting, tingling, left sided numbness, right sided numbness, left sided weakness, right sided weakness, problems walking, unable to move lower ext, unable to move upper ext, petit mal seizures, tonic-clonic seizures, cognitive dysfunction, other Musculoskeletal: Denies: no symptoms reported, see HPI, pain, swelling, back pain, gout, joint pain, joint swelling, muscle pain, muscle swelling, muscle stiffness, neck pain, other Exam Vitals: Vital Signs Date Time Temp Pulse Resp B/P (MAP) Pulse Ox O2 Delivery O2 Flow Rate FiO2 06/20/25 20:41 98.3 71 12 163/92 (115) 95 0 General: General:, alert and awake, Head: Normocephalic, atraumatic Eyes: Pupils- 3mm, reacting to light, conjunctiva- anicteric Neck: Supple, no lymphadenopathy, no carotid bruit Respiratory: No use of accessory muscles of respiration, Bilateral normal vesicular breath sounds heard. No wheeze, rhochi or creps Cardiac: S1-S2 heard, rhythm regular, no murmur Abdomen: non distended, tenderness in epigastric region, no organomegaly, bowel sounds - heard, no rigidity, no guarding Extremities: no clubbing, no pedal edema, no deformities, peripheral pulses - 2+ Skin: warm and dry, no rash, no purpura, Neuro: No focal neurological deficits Diagnostic Data Last Recorded Lab Results: 06/20/25 1730 06/20/252022 Advance Care Planning Advanced Care plannin - 30 Minutes (I spent 17 minutes in discussing various resuscitative measures, the patient chose to be DNR.) Additional Plan Assessment This is a 80-year-old male with past medical history of prostate cancer s/p radical prostatectomy with penile implant and placement of artificial bladder sphincter, left nephrectomy in 2019, history of lung cancer with lobectomy 5 years ago, atrial fibrillation, orthostatic hypotension, kidney stones came to the ER with a chief complaint of abdominal pain which occurs after eating. The patient is being admitted for abdominal pain, cause under evaluation. Plan Abdominal pain, cause under evaluation Pain after eating Gastritis vs cholecystitis vs biliary colic vs proctitis vs colitis vs mesenteric ischemia CT abdomen showed findings suggestive of gastritis, proctitis, cholelithiasis. Patient is afebrile and WBC count, procalcitonin is normal Normal lipase. Abdominal ultrasound ordered for possible cholecystitis Did not start on antibiotic, no signs of infection. Started on Protonix 40 mg IV daily Pain management-continued home medication Percocet p.r.n.. On IV fluids, NS@ 100 mL/hour Hypokalemia Likely secondary to vomiting On potassium replacement protocol CKD 3 History of left nephrectomy Creatinine 1.18 CT abdomen showed 4 mm calculus in right lower pole. Mild right hydronephrosis with no obstructing calculus. Orthostatic hypotension Patient is currently feeling lightheaded Orthostatic vitals ordered Received 250 mL bolus, on NS@ 100 mL/hour Patient's home medication include fludrocortisone and midodrine, continue once the med rec is done. Hypertension Patient's home medication include metoprolol, Lasix, continue once the med rec is done Atrial fibrillation, in controlled ventricular rate Eliquis was discontinued for repeat falls Continue metoprolol once the med rec is done. Chronic back and neck pain Continued patient's home medication Percocet Normocytic anemia Likely secondary to CKD Ordered iron panel and stool for occult blood. History of prostate cancer s/p radical prostatectomy with penile implant and placement of artificial bladder sphincter, history of lung cancer with lobectomy 5 years ago, Code status: DNR DVT prophylaxis; Lovenox GI prophylaxis: Pantoprazole Diet: Renal diet Status: Guarded Checo Lemus M.D PGY2 Date of Service: Jun 20, 2025 Billing Provider: BETSY GALVAN MD, PRAVAHIKA, RES Jun 20, 2025 21:03
[2025-06-20 21:24] LABS: PHOSPHORUS 2.2 MG/DL (2.3-4.5); PRO BRAIN NATRIURETIC PEPTIDE 2782 PG/ML (0-450)
[2025-06-20] MEDS: potassium CL 10mEq/100ml bag 100 ML IV ONE (22:23)
[2025-06-20 23:15] VITALS: BP 201/81; PULSE 82; RESP 19; TEMP 98.7; O2SAT 95
[2025-06-20 23:26] LABS: % IRON SATURATION 13 % (11-46)
[2025-06-20 23:30] VITALS: BP 190/85
[2025-06-21] VITALS (8 sets, daily range): BP systolic 138–189; BP diastolic 65–79; PULSE 66–94; RESP 17–23; TEMP 97.5–98.4; O2SAT 93–96
[2025-06-21] MEDS: hydrALAZINE 20mg/ml inj. IV ONE (00:12)
[2025-06-21] MEDS: potassium Cl 20 mEq SR tablet PO PRN ×2 (00:12→07:55)
--- NOTE | 2025-06-21 02:01 | RADIOLOGY REPORT ---
ABDOMINAL ULTRASOUND CLINICAL HISTORY: RUQ pain TECHNIQUE: Multiple grayscale and color Doppler ultrasound images were obtained of the abdomen. WID: COMPARISON: CT CT ABDOMEN PELVIS on DOS: 06/20/25 FINDINGS: Liver and Biliary System: Homogeneous echotexture, normal size measuring 16.97 cm. No focal hepati c observations. No intrahepatic bile duct dilatation. The common duct measures 0.5 cm at the yumiko hepatis. The gallbladder is normal caliber with cholelithiasis and sludge. Pancreas: Not well seen due to overlying bowel gas Kidneys: The right kidney is 12.98 cm . No hydronephrosis, increased echogenicity, shadowing stone, or focal lesion. IMPRESSION: 1. Cholelithiasis without biliary ductal dilatation or acute cholecystitis.
[2025-06-21 04:53] LABS: MEAN PLATELET VOLUME 6.8 FL (7.4-10.4); RED CELL DISTRIBUTION WIDTH 17.9 % (11.5-14.5)
[2025-06-21 05:11] LABS: CHOL/HDL RATIO 3.6 (0.00-4.99); CREATININE 1.08 MG/DL (0.60-1.10); LDL CHOLESTEROL 99 MG/DL (50-100); TOTAL CARBON DIOXIDE 30.8 MMOL/L (24-32); eCRCL 59 ML/MIN; eGFR 66 ML/MIN
[2025-06-21] MEDS: docusate sod 100mg capsule PO SCH (07:56)
[2025-06-21] MEDS: heparin, porcine 5000 units/ml vial SQ SCH (07:57)
[2025-06-21] MEDS: K and/or MAG REPLACEMENT MC SCH (08:00)
[2025-06-21] MEDS: propafenone 150mg tablet PO SCH (08:19)
[2025-06-21] MEDS: ondansetron/PF 4mg/2ml inj IV PRN (08:20)
[2025-06-21] MEDS ORDERED: METO10TA3 PO (16:37)
[2025-06-21] MEDS ORDERED: FERR-39 PO (16:37)
[2025-06-21] MEDS ORDERED: METO-395 PO (16:37)
[2025-06-21] MEDS ORDERED: LIDO1ADH78 TOP (16:37)
[2025-06-21] MEDS ORDERED: LIDO15CR15 TOP (16:37)
[2025-06-21] MEDS ORDERED: PANT-47 PO (16:37)
[2025-06-21] MEDS ORDERED: LACT1CAP65 PO (16:37)
[2025-06-21] MEDS ORDERED: ONDA-103 PO (16:37)
[2025-06-21] MEDS ORDERED: MIDO5TAB4 PO (16:37)
[2025-06-21] MEDS ORDERED: LACT-373 PO (16:37)
[2025-06-21] MEDS ORDERED: CITA40TA22 PO (16:37)
[2025-06-21] MEDS ORDERED: FURO40TA4 PO (16:37)
[2025-06-21] MEDS ORDERED: ASPI1TAB2 PO (16:37)
[2025-06-21] MEDS ORDERED: KETO15CR2 TOP (16:37)
[2025-06-21] MEDS ORDERED: ondansetron 4mg rapidly disintigrating tab PO PRN (16:40)
--- NOTE | 2025-06-21 17:42 | CARDIOLOGY REPORT ---
APPROVED REPORT EXAM: Comprehensive 2D, Doppler, and color-flow Echocardiogram. Patient Location: 358 A Heart Rate: 60's bpm Rhythm: SINUS WITH INTERMITTENT PACING Indications SYNCOPE ATRIAL FIBRILLATION HYPERTENSION PACEMAKER 2019 A R Specialist: OUT OF AREA Previous echo: NONE AVAILABLE 2D Dimensions RVDd 4.0 cm LA Diam5.1 cm IVSd 1.1 (0.7-1.1cm) LVDd 4.9 cm PWd 1.2 (0.7-1.1cm) IVSs 1.4 (0.8-1.2cm) LVDs 3.3 (2.5-4.0cm) PWs 1.4 (0.8-1.2cm) LVOT Diameter 2.01 (1.8-2.4cm) LVEF(%) 61.2 (>50%) FS (%) 32.8 % SV 68.3 ml CO 5.1 L/min M-Mode Dimensions Aortic Root 3.73 (2.2-3.7cm) Aortic Cusp Exc 1.95 (1.5-2.0cm) MV EPSS 1.3 (<0.5cm) Aortic Valve AoV Peak Neal. 146.1 cm/s AoV VTI 30.2 cm AO Peak GR. 8.5 mmHg AO Mean GR. 4 mmHg LVOT VTI 24.25 cm LVOT Peak Neal. 117.5 cm/s NICHOLE(VTI)/BSA 2.54 cm2/m2 NICHOLE (VTI) 2.54 cm2 AI P 1/2 Time 436 ms Mitral Valve MV E Velocity 141.1 cm/s MV Peak Gr. 8 mmHg MV DECEL TIME 184 ms MV A Velocity 96.1 cm/s MV PHT 56 ms E/A Ratio 1.5 MVA (PHT) 3.93 cm2 MV DGyw543.8 cm/s Tricuspid Valve TR P. Velocity 374 cm/s RAP ESTIMATE 10 mmHg TR Peak Gr. 56 mmHg RVSP 66 mmHg LEFT VENTRICLE Normal LV size and wall thickness. Overall systolic function is normal. Overall LVEF is 60%. RIGHT VENTRICLE RV is mildly dilated in size with normal function. Estimated PA systolic pressure of 66 mm of mercury . ATRIA Left atrium is moderately dilated. AORTIC VALVE Trileaflet AV appears mildly sclerotic and calcified without stenosis. Moderate aortic insufficiency. MITRAL VALVE Mild MV annular calcification and thickened leaflets without stenosis mild to. Moderate regurgitation . TRICUSPID VALVE TV appears structurally normal with ? probable moderate regurgitation. Best seen in subcostal view. PULMONIC VALVE Normal PV without stenosis, physiologic insufficiency. GREAT VESSELS The aortic root is upper limit normal in size. PERICARDIUM Normal pericardium. No effusion. Other Information Study Quality: Adequate but no SSN window. Conclusion Overall LVEF is 60%. RV is mildly dilated in size with normal function. Estimated PA systolic pressure of 66 mm of mercur y. Trileaflet AV appears mildly sclerotic and calcified without stenosis. Moderate aortic insufficiency . Mild MV annular calcification and thickened leaflets without stenosis mild to. Moderate regurgitation . TV appears structurally normal with moderate regurgitation. Best seen in subcostal view. Normal pericardium. No effusion.
--- NOTE | 2025-06-21 20:07 | PROGRESS NOTE- Residence ---
Progress Note - Resident Providers to CC Resident Creating Document: CLINT HUDDLESTON RES ~ Antibiotic Timeout Antibiotic Ordered?: No Subjective Patient seen and examined at bedside. He is not in acute distress. He states that pain has improved after pain medication. Objective Vital Signs Date Time Temp Pulse Resp B/P (MAP) Pulse Ox O2 Delivery O2 Flow Rate FiO2 06/21/25 11:29 69 169/65 (99) 88 138/68 (91) 84 159/69 (99) 06/21/25 11:19 97.5 17 93 Room Air 06/21/25 08:10 0.0 Result Diagram: 06/21/25 0432 06/21/25 0432 Awake , alert, and oriented x4, resting comfortably in the bed, in no acute distress HEENT: Atraumatic, normocephalic, EOMI, anicteric sclera ; pink conjunctiva Neck: Trachea midline. Supple, full range of motion, no JVD Cardiac: Regular rhythm, regular rate with no murmurs all over the precordium. Respiratory: Equal breath sounds bilaterally, no tachypnea, no wheezing ,rub or rales, Chest wall is symmetric and without deformity. Gastrointestinal: Tenderness in epigastric region on palpation, symmetric, non- distended, soft, normal bowel sounds x4 quadrant, normoactive, no hepatosplenomegaly Musculoskeletal: No pedal edema, no cyanosis Neurological: Speech is clear, alert, and oriented x 4. No motor or sensory deficit, deep tendon reflexes normal, cerebellar intact. Cranial nerves II-XII intact. Skin: Warm and dry Assessment Assessment This is a 80-year-old male with past medical history of prostate cancer s/p radical prostatectomy with penile implant and placement of artificial bladder sphincter, left nephrectomy in 2019, history of lung cancer with lobectomy 5 years ago, atrial fibrillation, orthostatic hypotension, kidney stones came to the ER with a chief complaint of abdominal pain which occurs after eating. The patient has been admitted for abdominal pain, cause under evaluation. Plan Plan Abdominal pain, under evaluation Gastritis vs cholecystitis vs biliary colic vs proctitis vs colitis vs mesenteric ischemia Pain post oral intake Patient is afebrile and WBC count, procalcitonin is normal (no signs of sepsis) Normal lipase. CT abdomen showed findings suggestive of gastritis, proctitis, cholelithiasis. Abdominal ultrasound ordered for possible cholecystitis Did not start on antibiotic, no signs of infection. Started on Protonix 40 mg IV daily Pain management-continued home medication Percocet p.r.n.. On IV fluids, NS@ 100 mL/hour 06/21/25: Abdominal ultrasound showed cholelithiasis without biliary ductal dilatation or acute cholecystitis After ruling out all possible causes of acute abdominal, patient will likely benefit from EGD for possible gastritis/ H pylori infection Continue Protonix 40 mg IV daily as above, and maintenance IV fluids Patient has no signs of infection, hence holding off antibiotics for now, we will reassess tomorrow in a.m. Also patient has chronic history of constipation, possible causes include: Severe ileus secondary to hypokalemia, chronic PO iron therapy, age Patient's last colonoscopy was 10 years ago, and was unremarkable We will consult GI if there is any need for EGD or colonoscopy based on his persistence of symptoms Continue bowel regimen with lactulose 20 mg p.o. daily, patient had 1 bowel movement yesterday right Severe Hypokalemia 2.7 on admission Repeat potassium after replacement 3.3 Likely secondary to vomiting and poor nutritional intake On potassium replacement protocol Held Lasix CKD 3 History of left nephrectomy Creatinine 1.18 CT abdomen showed 4 mm calculus in right lower pole. Mild right hydronephrosis with no obstructing calculus. 06/21/25: Creatinine downtrended from 1.18 to 1.08 Orthostatic hypotension Patient is currently feeling lightheaded Orthostatic vitals ordered Received 250 mL bolus, on NS@ 100 mL/hour Patient's home medication include fludrocortisone and midodrine, continue once the med rec is done. 06/21/25: Orthostatic vitals negative Held fludrocortisone and midodrine on account of high blood pressures Hypertension Patient's home medication include metoprolol, Lasix, continue once the med rec is done 06/21/25: Continued home medication-metoprolol Held IV Lasix in view of hypokalemia, we will monitor potassium levels Atrial fibrillation, in controlled ventricular rate Dereck Vasc score-3 Eliquis was discontinued for repeat falls Continue metoprolol once the med rec is done. 06/21/25: Continued metoprolol Chronic back and neck pain Continued patient's home medication Percocet Normocytic anemia Likely secondary to CKD Ordered iron panel and stool for occult blood 06/21/25: Iron and TIBC is low, ferritin normal Ordered vitamin B12 and folate level Held home medication, ferrous sulphate in view of constipation IV iron therapy ordered History of prostate cancer s/p radical prostatectomy with penile implant and placement of artificial bladder sphincter, history of lung cancer with lobectomy 5 years ago, Code status: Full DVT prophylaxis: Lovenox GI prophylaxis: Protonix Pain management: Percocet Diet/nutrition: Regular Prognosis: Guarded Resident attestation: The patient note has been reviewed and supervised by senior residents PGY-2/ PGY-3. Patient was seen, examined and discussed with attending physician. Clint Huddleston MD Internal Medicine resident, PGY-1 [facility] Date of Service: Jun 21, 2025 Billing Provider: ZHANE MORGAN MD Common Visit Codes: [id number] INP/OBS CARE(HIGH) CLINT HUDDLESTON, RES Jun 21, 2025 20:07 ZHANE MORGAN MD Jun 23, 2025 08:04
[2025-06-21] MEDS: lactulose 20gm/30ml cup PO SCH (20:45)
[2025-06-22] MEDS: polyvinyl alcohol eye drops 15ML BOTTLE EACHEYE PRN (00:26)
[2025-06-22 00:30] VITALS: BP 165/78; PULSE 74
[2025-06-22] MEDS: LIDOCAINE 5% OINTMENT 35GM TP PRN (00:32)
[2025-06-22 04:21] VITALS: BP 192/83; PULSE 76
[2025-06-22 04:35] LABS: MEAN PLATELET VOLUME 6.8 FL (7.4-10.4); RED CELL DISTRIBUTION WIDTH 18.4 % (11.5-14.5)
[2025-06-22 05:06] LABS: CREATININE 1.12 MG/DL (0.60-1.10); TOTAL CARBON DIOXIDE 27.1 MMOL/L (24-32); eCRCL 57 ML/MIN; eGFR 63 ML/MIN
[2025-06-22 06:00] VITALS: BP 192/83; PULSE 76; RESP 16; TEMP 97.5; O2SAT 93
[2025-06-22] MEDS: metoprolol succinate 25mg (24-HOUR) SR. Tablet PO SCH (07:38)
[2025-06-22] MEDS: lactobacillus rhamnosus 10,000 MMU CELLS/CAPSULE PO SCH (07:40)
[2025-06-22] MEDS: aspirin 81mg, enteric-coated 1 TAB TABLET.DR PO SCH (07:40)
[2025-06-22] MEDS: iron sucrose complex injection 200 MG in normal saline 100ml IV soln 100 ML IV SCH (07:42)
[2025-06-22 08:00] VITALS: BP_SYST 171; BP_SYST 191; BP_DIAS 72; BP_DIAS 82; PULSE 75; PULSE 81; PULSE 86
[2025-06-22 10:00] VITALS: BP 165/74; PULSE 74; RESP 18; TEMP 98.2; O2SAT 92
[2025-06-22 12:05] LABS: CREATININE,URINE RANDOM 92.0 MG/DL; UA UREA RANDOM 582.0 MG/DL
[2025-06-22 12:07] LABS: OSMOLALITY UA 552.0 MOSM/K (50-1400)
[2025-06-22 12:46] VITALS: RESP 16
[2025-06-22] MEDS ORDERED: [UNRECOGNIZED DRUG - CODE] RC (14:20)
--- NOTE | 2025-06-23 07:34 | DISCHARGE SUMMARY-Residence ---
Discharge Summary Providers to Resident Creating Document: FLAQUITOCLINT, RES ~ Discharge Summary Admission Diagnosis: ABDOMINAL PAIN Hospital Course DATE OF ADMISSION: 06/20/2025 DATE OF DISCHARGE: 06/22/2025 IMAGING: ABDOMEN CT: Mild gastric wall thickening with a Mild rectal wall thickening which is most likely from inadequate distention. Mild gastritis and proctitis can not be c ompletely excluded. Cholelithiasis without evidence for acute cholecystitis. Nonobstructing right renal calculus. Mild right [place] nephrosis with no obstructing calculus noted. [id number]-[id number] cardiomegaly with trace pericardial effusion. Small right-sided pleural effusion with associated atelectasis. ABDOMINAL ULTRASOUND: Cholelithiasis without biliary ductal dilatation or acute cholecystitis. ECHOCARDIOGRAM: Overall LVEF is 60%. RV is mildly dilated in size with normal function. Estimated PA systolic pressure of 66 mm of mercury. Trileaflet AV appears mildly sclerotic and calcified without stenosis. Moderate aortic insufficiency. Mild MV annular calcification and thickened leaflets without stenosis mild to. Moderate regurgitation. TV appears structurally normal with moderate regurgitation. Best seen in subcostal view. Normal pericardium. No effusion. Discharge Diagnosis\Comment: Abdominal pain possibly secondary to Fecal impaction Possible gastritis Cholelithiasis Ruled out cholecystitis,biliary colic,proctitis,colitis , mesenteric ischemia Severe Hypokalemia, resolved CKD 3 History of left nephrectomy hx of Orthostatic hypotension Hypertension Atrial fibrillation, in controlled ventricular rate Chronic back and neck pain Normocytic anemia Operations\Procedures: None Consultants: None Complications: None Condition on DC: Stable Discharge Summary: History of present illness from admission: A 80-year-old male with past medical history of prostate cancer s/p radical prostatectomy with penile implant and placement of artificial bladder sphincter, left nephrectomy in 2019, history of lung cancer with lobectomy 5 years ago, atrial fibrillation, orthostatic hypotension, kidney stones came to the ER with a chief complaint of abdominal pain. The is at the bedside who assisted with the history taking. The pain is mainly located in the periumbilical region, started three weeks ago. Describes the pain as sharp/cramping, nonradiating, graded 8/10, intermittent. The pain is associated with food intake, occurring almost immediately after the food intake improving 30 minutes later. Since one week the patient reports increasing intensity and episodes of pain. He has associated nausea and had three episodes of vomiting today. Denies any fever. Went to the urgent care, abdominal x-ray was done which showed large amount of stools, constipation improved with lactulose. Last bowel movement was today. Has dark-colored stools, on iron supplementation. The reported that patient had three falls last week, were mechanical falls, she stopped Eliquis for one week. Currently the patient complains of lightheadedness. Course in the hospital: Patient was admitted in hospital for evaluation of abdominal pain. Patient is afebrile and WBC count, procalcitonin is normal. Lipase levels are in normal limits. CT scan showed cholelithiasis without evidence of cholecystitis. Patient started on IV Protonix 40 mg daily and pain management with home medication Percocet as needed. Continued bowel regimen with lactulose 20 mg p.o. daily, patient had 1 bowel movement. Patient had hypokalemia secondary to vomiting and poor nutritional intake which was resolved with potassium replacement as per protocol. No orthostatic hypotension the hospital course. Patient recommended to use suppositories and enema for constipation, and advised to use lactulose after few bowel movements. Advised high-fiber diet and adequate hydration. Patient was advised to limit intake of Percocet for pain in view of constipation.Advised to come to ER or call 911 if any further episodes of severe abdominal pain, nausea and vomiting Advised at discharge: Follow-up with PCP in one week. Advised to discuss concerns about Eliquis for AFib and history of falls with PCP. Advised to monitor BP fluctuations and discuss with PCP regarding use of fludrocortisone, midodrine Recommended suppositories and enema for constipation, can use lactulose after few bowel movements. Recommended high-fiber intake and adequate hydration Advised to limit intake of Percocet for pain since it can also cause constipation. Advised to come to ER or call 911 if any further episodes of severe abdominal pain, nausea and vomiting Examination at discharge: Awake , alert, and oriented x4, resting comfortably in the bed, in no acute distress HEENT: Atraumatic, normocephalic, EOMI, anicteric sclera ; pink conjunctiva Neck: Trachea midline. Supple, full range of motion, no JVD Cardiac: Regular rhythm, regular rate with no murmurs all over the precordium. Respiratory: Equal breath sounds bilaterally, no tachypnea, no wheezing ,rub or rales, Chest wall is symmetric and without deformity. Gastrointestinal: Tenderness in epigastric region on palpation, symmetric, non- distended, soft, normal bowel sounds x4 quadrant, normoactive, no hepa tosplenomegaly Musculoskeletal: No pedal edema, no cyanosis Neurological: Speech is clear, alert, and oriented x 4. No motor or sensory deficit, deep tendon reflexes normal, cerebellar intact. Cranial nerves II-XII intact. Skin: Warm and dry Laboratory Tests Test 06/22/25 04:18 06/22/25 11:30 White Blood Count 6.7 X10'3 Red Blood Count 3.63 X10'6 Hemoglobin 9.3 g/dl Hematocrit 30.0 % Mean Corpuscular Volume 82.5 FL Mean Corpuscular Hemoglobin 25.7 PG Mean Corpuscular Hemoglobin Concent 31.1 g/dL Red Cell Distribution Width 18.4 % Platelet Count 258 X10'3 Mean Platelet Volume 6.8 FL Neutrophils (%) (Auto) 59.9 % Lymphocytes (%) (Auto) 22.6 % Monocytes (%) (Auto) 13.2 % Eosinophils (%) (Auto) 3.2 % Basophils (%) (Auto) 1.1 % Neutrophils # (Auto) 4.0 X10'3 Lymphocytes # (Auto) 1.5 X10'3 Monocytes # (Auto) 0.9 X10'3 Eosinophils # (Auto) 0.2 X10'3 Basophils # (Auto) 0.1 X10'3 CBC Comment Sodium Level 143 MMOL/L Potassium Level 4.3 MMOL/L Chloride Level 110 MMOL/L Carbon Dioxide Level 27.1 MMOL/L Anion Gap 6 Blood Urea Nitrogen 14 MG/DL Creatinine 1.12 MG/DL Estimated GFR/1.73 m2 63 ML/MIN BUN/Creatinine Ratio 12.5 Glucose Level 85 MG/DL Calcium Level 8.5 MG/DL Magnesium Level 2.2 MG/DL Total Bilirubin 0.3 MG/DL Aspartate Amino Transf (AST/SGOT) 15 U/L Alanine Aminotransferase (ALT/SGPT) 12 U/L Alkaline Phosphatase 61 IU/L Total Protein 7.1 G/DL Albumin 2.2 G/DL Globulin 4.9 G/DL Albumin/Globulin Ratio 0.4 Chemistry Comments Urine Eosinophils Rare eos /HPF Urine Osmolality 552 MOSM/K Urine Random Creatinine 92.0 MG/DL Urine Random Sodium 72 MEQ/L Urine Random Potassium 39 MEQ/L Urine Random Urea 582.0 MG/DL *Problems/Diagnosis: (1) Constipation (2) Fecal impaction (3) Gastritis (4) Hypokalemia (5) Hypertension (6) Afib (7) Normocytic anemia (8) Cholelithiasis Total Time Spent on D/C: > 30 Minutes Date of Service: Jun 22, 2025 Billing Provider: ZHANE MORGAN MD Common Visit Codes: 44502-EQA/OBS DISCH DAY >30min CLINT HUDDLESTON, RES Jun 23, 2025 07:08 ZHANE MORGAN MD Jun 23, 2025 08:05
== END 2025-06-22 15:17 | disposition home or self-care (01) | DRG 390 ==
LOC: ER 16:03 → ED HOLD 20:40 → EDBEDREQ 21:28 → SUR 3N 23:15
PROVIDERS: ADMIT Internal Medicine Pulmonary Disease; ATTEND Internal Medicine
DX: K56.41 Fecal impaction (principal); K29.70 Gastritis, unspecified, without bleeding; N18.30 Chronic kidney disease, stage 3 unspecified; I48.91 Unspecified atrial fibrillation; K80.20 Calculus of gallbladder without cholecystitis without obstruction; D64.9 Anemia, unspecified; I12.9 Hypertensive chronic kidney disease with stage 1 through stage 4 chronic kidney disease, or unspecified chronic kidney disease; E87.6 Hypokalemia; Z88.1 Allergy status to other antibiotic agents; Z88.2 Allergy status to sulfonamides; Z85.118 Personal history of other malignant neoplasm of bronchus and lung; Z87.442 Personal history of urinary calculi; Z79.01 Long term (current) use of anticoagulants
CPT/HCPCS: 36415; 74176; 76700; 80048; 80053; 80061; 81001; 82570; 82607; 82728; 83036; 83540; 83550; 83605; 83690; 83735; 83880; 83935; 84100; 84133; 84145; 84300; 84484; 84540; 85025; 87040; 87081; 87207; 93005; 93306; 96365; 96367; 96375; 99291; G0378; J0360; J1644; J1756; J2270; J2405; J2470; J3480; J3490; J7030; J7050

== ENCOUNTER 2025-08-06 10:49 | Inpatient (IN) | payer OTHER, MEDICARE ==
[~2025-08-06] VITALS: Ht 182.9 cm; Wt 77.0 kg
[~2025-08-06 10:49] MED LIST changes: -ASPI-611 PO; +ASPI1TAB2 PO; -ATOR40TA PO; -CITA-178 PO; +CITA40TA22 PO; +FERR-39 PO; -FURO-150 PO; +FURO40TA4 PO; +KETO15CR2 TOP; +LACT-373 PO; +LACT1CAP65 PO; +LIDO15CR15 TOP; +LIDO1ADH78 TOP; +METO-395 PO; +METO10TA3 PO; -METO50TA17 PO; +MIDO5TAB4 PO; -NOR5T PO; +ONDA-103 PO; +PANT-47 PO; +[UNRECOGNIZED DRUG - CODE] RC
--- NOTE | 2025-08-06 11:16 | ELECTROCARDIOGRAPH REPORT ---
[facility] Test Date: 2025-08-06 Test Time: 11:13:32 Pat Name: LEE CRUZ Department: [facility]-ER Patient ID: [facility]-[id number] Room: [facility]TH[facility] Gender: M Thread Separator: : 1945 Requested By: JOEY KING Order Number: [id number] Reading MD: Dr. Roman Godoy Measurements Intervals [place] Rate: 92 P: 20 [place]: 196 QRS: 26 QRSD: 94 T: 43 QT: 375 QTc: 464 Interpretive Statements Sinus rhythm Atrial premature complexes Abnormal R-wave progression, early transition Electronically Signed On 08-12-2025 7:51:[address] Roman Godoy Please click the below link to view image of tracing.
[2025-08-06 11:24] LABS: MEAN PLATELET VOLUME 7.3 FL (7.4-10.4); RED CELL DISTRIBUTION WIDTH 18.3 % (11.5-14.5)
[2025-08-06 11:43] LABS: CREATININE 1.92 MG/DL (0.60-1.10); PRO BRAIN NATRIURETIC PEPTIDE 2784 PG/ML (0-450); TOTAL CARBON DIOXIDE 25.2 MMOL/L (24-32); eCRCL 33 ML/MIN; eGFR 34 ML/MIN
--- NOTE | 2025-08-06 11:44 | RADIOLOGY REPORT ---
CT CT HEAD INDICATION: Mechanical fall COMPARISON: None TECHNIQUE: CT of the head without intravenous contrast. RADIATION DOSE: CTDIvol: 68 mGy, DLP: 1254 mGy*cm FINDINGS: There is no evidence of acute intracranial hemorrhage, extra-axial collection, mass effect, midline shift, herniation or hydrocephalus. The ventricles, sulci and cisterns are age appropriate. The [place]-white differentiation is intact. Near complete opacification of the right maxillary sinus. The surrounding soft tissues and osseous structures are unremarkable. IMPRESSION: 1. No acute intracranial abnormality. 2. Right maxillary sinusitis
--- NOTE | 2025-08-06 11:53 | RADIOLOGY REPORT ---
EXAM: DI CHEST,SINGLE VIEW CLINICAL HISTORY: CP TECHNIQUE: Single AP view of the chest WID: COMPARISON: None FINDINGS: Lines and tubes: There are posterior spinal fixation hardware visualized in the lower cervical spine. There is a fracture of the transpedicular screw in the inferior most screw on the left. Left-sided dual lead pacemaker with lead tips projecting over the right atrium and right ventricle. Chest: The heart size and pulmonary vasculature is within normal limits. Calcified plaque projects over the aortic arch. Interstitial prominence of the lungs. Small right pleural effusion. No pneumothorax. The osseous structures are grossly intact. IMPRESSION: 1. Interstitial prominence in the lungs which could be related to interstitial edema, fibrosis/ scarring, or atypical infection. 2. Small right pleural effusion. 3. Posterior spinal fixation hardware in the visualized lower cervical spine with fracture of the inferior most transpedicular screw on the left.
--- NOTE | 2025-08-06 11:53 | RADIOLOGY REPORT ---
EXAM: CT CT CERVICAL SPINE INDICATION: pain EXAM DATE: 08/06/2025 11:19 AM COMPARISON: CT CT HEAD on DOS: 08/06/25 TECHNIQUE: Multiple axial CT images of the cervical spine were obtained using bone algorithm. Axial and coronal reformatting was done. Bone and soft tissue windows were reviewed. Radiation Dose Information: CT Dose: CTDI volume is 19 mGy. Dose-length product is 475 mGy*cm FINDINGS: The cervical alignment is intact. No acute cervical spine fracture is identified. The vertebral body heights are intact. No suspicious osseous lesions are identified. Cervical fixation hardware spans C3 down to T1. No evidence of hardware complication. There is no prevertebral soft tissue swelling. IMPRESSION: 1. No evidence of acute cervical spine fracture or traumatic malalignment. 2. Cervical fixation hardware spans C3 down to T1. No evidence of hardware complication. All CT scans at this medical facility are performed using dose modulation techniques as appropriate to a performed exam including the following: Automated exposure control was utilized; adjustment of the MA and/or KV according to patient size; and use of iterative reconstruction technique. All CT scans at this medical facility are performed using dose modulation techniques as appropriate to a performed exam including the following: Automated exposure control was utilized; adjustment of the MA and/or KV according to patient size; and use of iterative reconstruction technique.
--- NOTE | 2025-08-06 12:36 | Physician Documentation ---
History of Present Illness ~ Chief Complaint: ALOC Stated Complaint: ALOC Time Seen by MD: 11:03 Primary Medical Doctor: gagan Source: family Mode of Arrival: EMS HPI Mr. Rodriguez is an 80 y/o male with PMHx significant for prostate cancer s/p radical prostatectomy with penile implant and placement of artificial bladder sphincter, left nephrectomy in 2019, history of lung cancer with lobectomy 5 years ago, atrial fibrillation, orthostatic hypotension, and kidney stones who presents to the ED today from home for evaluation of an altered mental status. His states that over the past 2 days, he has become more confused and with generalized weakness. She states that he has been diagnosed with POTS and initially felt that he was having difficulty transitioning from a seated to a standing position due to his POTS but over the past 36 hours, he has had increased difficulty standing and has fallen twice today and hit his head. No LoC. No report of chest pain/pressure/palpitations or discomfort. No SOB or difficulty breathing. Medication Reconciliation Allergies: Coded Allergies: ampicillin (Verified Allergy, Intermediate, RASH, 08/06/25) sulfamethoxazole (Verified Allergy, Intermediate, N/V RASH, 08/06/25) trimethoprim (Verified Allergy, Intermediate, N/V RASH, 08/06/25) cephalexin (Unverified Allergy, Unknown, 08/06/25) ciprofloxacin (Unverified Allergy, Unknown, 08/06/25) Scheduled Aspirin/Acetaminophen/Caffeine (Excedrin Caplet), 1 EACH PO PRN, (Reported) Citalopram Hydrobromide (Celexa), 1 TAB PO DAILY, (Reported) Ferrous Sulfate (Ferrous Sulfate), 1 TAB PO Q12H, (Reported) Fludrocortisone Acetate (Fludrocortisone Acetate), 1 TABLET PO DAILY, (Reported) Furosemide 40 MG (Lasix), 1 TAB PO DAILY, (Reported) Ketoconazole (Ketoconazole), 1 APPLIC TOP PRN, (Reported) Lactobacillus Acidophilus (Probiotic), 1 CAP PO DAILY, (Reported) Metoclopramide Hcl* (Metoclopramide Hcl*), 1 TAB PO CC, (Reported) Metoprolol Succinate (Metoprolol Succinate), 0.5 TAB PO DAILY, (Reported) Midodrine HCl (Midodrine HCl), 1 TAB PO Q12H, (Reported) Pantoprazole Sodium (PROTONIX tablet), 1 TAB PO DAILY, (Reported) Propafenone HCl (Propafenone HCl), 1 TAB PO BID, (Reported) Suppository Base No.231 (Supposi-Plex V33), 500 GM RC HS Scheduled PRN Lactulose (Lactulose), 30 ML PO PRN PRN for constipation, (Reported) Lidocaine (Lidocaine), 1 APPLIC TOP PRN PRN for pain, (Reported) Lidocaine (Lidocaine), 1 PATCH TOP PRN PRN for pain, (Reported) Ondansetron HCl (Ondansetron HCl), 1 TAB PO PRN PRN for nausea/vomiting, (Reported) Oxycodone HCl/Acetaminophen (Percocet 10-325 mg Tablet), 1 TAB PO 5XD PRN for moderate or severe pain, (Reported) Past Medical History Past Medical History: Atrial Fibrillation, Kidney Stones, Renal Disease, Chronic Back Pain, Lung Cancer Past Surgical History: abdominal surgery, appendectomy, other Other Past Surgical History: prostate sx, urostomy Alcohol Use: None Drug Use: none Lives with: Spouse Lives In: Home Occupation: disabled Review of Systems All Other Systems at this time: Reviewed and Negative Physical Exam Vital Signs: RN Vital Signs have been reviewed: Yes, Temperature: 98.0, Source: Oral, Heart Rate: 93, Respiratory Rate: 18, BP: 125/57, Pulse Oximetry: 97, Weight: 77.050 Physical Exam GEN: Alert and oriented and in NAD. HEENT: NC/AT. PERRLA. No scleral icterus. MMM. No oral lesions. NECK: Supple. No JVD. CHEST: RRR. No M/G/T. LUNGS: CTA B. No W/R/R. ABD: Soft. NTND. + BS. No rebounding or guarding. BACK: No CVA TTP. EXT: No c/c/e. NEURO: Alert and oriented x 4. Cooperative. Sensorimotor intact x 4 extremities. Progress Results/Orders Results/Orders Orders - JOEY KING MD Ct Head (08/06/25 11:09) Chest,Single View (08/06/25 11:09) Monitor (08/06/25 11:09) Saline Lock (08/06/25 11:09) Oxygen (08/06/25 11:09) Hs Troponin I W Calculations (08/06/25 13:09) Hs Troponin I W Calculations (08/06/25 14:09) Ct Cervical Spine (08/06/25 11:24) Urinalysis, Cult If Indicated (08/06/25 11:46) Completed Orders - JOEY KING MD Ct Head (08/06/25 11:09) Chest,Single View (08/06/25 11:09) Cbc/Diff (08/06/25 11:09) BMP (08/06/25 11:09) PBNP (08/06/25 11:09) Electrocardiogram (08/06/25 11:09) Hs Troponin I W Calculations (08/06/25 11:09) Ct Cervical Spine (08/06/25 11:24) LA (08/06/25 11:46) Vital Signs 08/06/25 08/06/25 11:01 11:13 Temp 98.0 Pulse 93 Resp 18 B/P (MAP) 125/57 Pulse Ox 97 Laboratory Tests Test 08/06/25 11:14 White Blood Count 16.3 H Red Blood Count 4.42 L Hemoglobin 11.4 L Hematocrit 35.5 L Mean Corpuscular Volume 80.2 Mean Corpuscular Hemoglobin 25.7 L Mean Corpuscular Hemoglobin Concent 32.0 L Red Cell Distribution Width 18.3 H Platelet Count 269 Mean Platelet Volume 7.3 L Neutrophils (%) (Auto) 79.6 H Lymphocytes (%) (Auto) 8.0 L Monocytes (%) (Auto) 11.8 Eosinophils (%) (Auto) 0.1 Basophils (%) (Auto) 0.5 Neutrophils # (Auto) 12.9 H Lymphocytes # (Auto) 1.3 Monocytes # (Auto) 1.9 H Eosinophils # (Auto) 0.0 Basophils # (Auto) 0.1 CBC Comment Sodium Level 136 Potassium Level 4.6 Chloride Level 101 Carbon Dioxide Level 25.2 Anion Gap 10 Blood Urea Nitrogen 34 H Creatinine 1.92 H Estimated GFR/1.73 m2 34 BUN/Creatinine Ratio 17.7 Glucose Level 108 H Lactic Acid Level 1.9 Calcium Level 9.2 Troponin I High Sensitivity 20 Pro-B-Type Natriuretic Peptide 2784 H Albumin 2.5 L Chemistry Comments EKG/XRAY/CT/US/VASC/MRI EKG : Intepreting Monitor?: Yes Indication: weakness EKG Rate: 92 EKG: NSR EKG Blocks: none [place]: normal Hypertrophy: none Medical Decision Making Additional information obtaine: old records, family Findings While here in the ED, he remained hemodynamically normal with ABC's intact and in NAD. He is afebrile and nontoxic. + confusion on exam but neuro exam is nonfocal. reports that she feels he may have had a seizure this morning because while she was consoling him, he had an episode of shaking and was confus ed for approximately 20 minutes. He is still not fully back to his baseline. I reviewed his CXR and it shows mild pulmonary vascular congestion. I also reviewed his NCCT brain and there are no signs suggestive of an acute bleed, space-occupying lesion, or large territorial infarct. CT C-spine obtained due to the fall and it shows chronic changes but is without acute findings. Labs returned with a leukocytosis but with neutrophil predominance and without a left shift. Lactic normal. Remained normotensive here in the ED. Will admit for ongoing management. Differential Dx:Considerations: Include: dehydration, Delirium Tr., encephalopathy, hypoglycemia, hyponatremia, hypoxia, closed head injury, CVA, mass lesion, subarachnoid hemorrhage, encephalopathy, medication toxicity, infection - meningitis, infection - sepsis, infection - UTI, heart failure, renal failure, respiratory failure, hypothermia Departure Disposition: 09 ADMITTED INPATIENT Admitted to Inpatient Unit: yes, to hospitalist Admission Level of Care: Med/Surg with Tele Impression: Primary Impression: Altered mental status Additional Impressions: Metabolic encephalopathy SCAR (acute kidney injury) Condition: Stable Discharge Instructions: Altered Mental Status Referrals: NO PRIMARY CARE PROVIDER (PCP) Education Educated: Patient, Family Educated regarding: diagnosis, treatment ACF Form Admit Criteria Met or Not Met: YES Signature Scribe Signature: N/A Attestation: N/A JOEY KING MD Aug 06, 2025 12:36
[2025-08-06] MEDS: fentaNYL/PF 50MCG/1 ML 2ML syringe IV ONE (12:49)
[2025-08-06] MEDS ORDERED: vancomycin inj 1,000 MG in normal saline 250ml IV soln 250 ML IV ONE (13:10)
[2025-08-06] MEDS ORDERED: potassium Cl 40MEQ/1/2NS 520ml 520 ML IV PRN (13:10)
[2025-08-06] MEDS ORDERED: mag hydrox/Alum hydrox/simeth 30ml oral suspension PO PRN (13:10)
[2025-08-06] MEDS ORDERED: magnesium sulf-water 4G/100mL 100 ML IV PRN (13:10)
[2025-08-06] MEDS ORDERED: HYDROcodone/acetaminophen 10/325mg tab PO PRN (13:10)
[2025-08-06] MEDS ORDERED: potassium Cl 20 mEq SR tablet PO PRN ×2 (13:10)
[2025-08-06] MEDS ORDERED: magnesium sulf-water 2g/50mL 50 ML IV PRN (13:10)
[2025-08-06 13:30] LABS: LEUKOCYTE ESTERASE ,URINE MODERATE (Neg); NITRITES, URINE NEGATIVE (Neg); OCCULT BLOOD,URINE MODERATE (Neg)
[2025-08-06 13:35] LABS: UA COLLECTION TYPE URINAL
[2025-08-06 13:36] LABS: MUCUS STRANDS FEW /LPF (Neg); SQUAMOUS EPITHELIAL CELL,UR FEW /LPF (FEW)
[2025-08-06] MEDS ORDERED: SERT100T PO (13:55)
[2025-08-06] MEDS ORDERED: FLUD0.1T2 PO (13:55)
[2025-08-06] MEDS ORDERED: FLUT1BLS10 (13:55)
[2025-08-06 15:41] VITALS: BP 129/59; PULSE 88; RESP 12; TEMP 97.6; O2SAT 98
[2025-08-06] MEDS ORDERED: oxyCODONE/APAP 5-325mg tablet PO PRN (15:50)
[2025-08-06] MEDS ORDERED: LIDOCAINE 4% PATCH TD PRN (15:50)
[2025-08-06] MEDS ORDERED: LIDOCAINE 5% OINTMENT 35GM TP PRN (15:50)
--- NOTE | 2025-08-06 16:00 | HISTORY AND PHYSICAL ---
History & Physical Providers to CC ~ History of Present Illness Reason for Admit\Complaint: Generalized weakness/ intermittent encephalopathy History of Present Illness This is an 80-year-old male with a history of orthostatic hypotension and possible pots presents to ED for generalized weakness and possible acute seizure activity. The patient's has not noticed this morning that the patient appear confused and was experiencing generalized tremors and post tremors was confused for approximately 20 seconds. 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 The patient is unable to ambulate currently the assessed that the patient now is at his cognitive baseline. The patient is urinalysis is consistent with a UTI and the patient is started with IV Rocephin and IV vancomycin. The patient's informs me that the patient has a chronic left knee infection and was scheduled to have the knee implant to be removed in May however orthopedic surgeon who was concerned the patient has strong enough at that time to have surgery. Allergies: Coded Allergies: ampicillin (Verified Allergy, Intermediate, RASH, 08/06/25) sulfamethoxazole (Verified Allergy, Intermediate, N/V RASH, 08/06/25) trimethoprim (Verified Allergy, Intermediate, N/V RASH, 08/06/25) ciprofloxacin (Unverified Allergy, Unknown, 08/06/25) cephalexin (Unverified Adverse Reaction, Intermediate, PROJECTILE VOMITING, 08/06/25) Home Medications Home Medications Active Reported Wixela 250-50 Inhub (Fluticasone Propion/Salmeterol) 250 Mcg-50 Mcg/Dose Blst.w.dev Zoloft (Sertraline Hcl) 100 Mg Tablet 1 Tab PO DAILY 30 Days Florinef* (Fludrocortisone Acetate) 0.1 Mg Tablet 1 Tab PO BID 30 Days PROTONIX tablet (Pantoprazole Sodium) 40 Mg Tablet.dr 1 Tab PO DAILY Ondansetron HCl 4 Mg Tablet 1 Tab PO PRN PRN Midodrine HCl 5 Mg Tablet 1 Tab PO Q12H Metoprolol Succinate 25 Mg Tab.sr.24h 0.5 Tab PO DAILY Metoclopramide Hcl* (Metoclopramide HCl) 10 Mg Tablet 1 Tab PO CC Lidocaine 4 % Adh..patch 1 Patch TOP PRN PRN Lidocaine 5 % Cream..g. 1 Applic TOP PRN PRN Lactulose 10 Gram/15 Ml Solution 30 Ml PO PRN PRN Probiotic (Lactobacillus Acidophilus) 10 Billion Cell Capsule 1 Cap PO DAILY Ketoconazole 2 % Cream..g. 1 Applic TOP PRN apply to affected area(s) Lasix (Furosemide) 40 Mg Tablet 1 Tab PO DAILY Ferrous Sulfate 325 Mg (65 Mg Iron) Tablet 1 Tab PO Q12H Percocet 10-325 mg Tablet (Oxycodone HCl/Acetaminophen) 1 Each Tablet 1 Tab PO 5XD PRN MDD 4 Tablet(s) 5 Days Propafenone HCl 300 Mg Tablet 1 Tab PO BID Past Medical History Past Medical History Prostate cancer Lung cancer Atrial fibrillation Orthostatic hypotension versus pots Kidney stones Chronic neck and back pain Past Surgical History Surgical History Comment Radical prostatectomy with a penile implant and placement of artificial bladder sphincter Left nephrectomy in 2019 Lung lobectomy on the right Bilateral knee surgery Appendectomy Partial colectomy for diverticulitis C3 through T1 spine fusion Family History Family History: FH: breast cancer Sister FH: dementia FATHER Ischemic bowel disease MOTHER Past Social History Social History Comment Quit smoking cigarettes in 1994, does not drink alcohol or use illicit drugs. Uses a walker to ambulate. DNR code status ROS ROS Except for positives in the HPI the rest of the 14 point review systems is negative Exam Vitals: Vital Signs Date Time Temp Pulse Resp B/P (MAP) Pulse Ox O2 Delivery O2 Flow Rate FiO2 08/06/25 15:41 97.6 88 12 129/59 (82) 98 Room Air 08/06/25 13:00 0 General: Gen. No acute distress alert and oriented Lungs clear to ascultation bilaterally, no wheezes rales or rhonchi appreciated Heart normal sinus rhythm no murmurs rubs or clicks noted Abdomen soft nontender bowel sounds are normoactive Lower extremities no clubbing cyanosis, appreciated bilaterally, mild left knee edema Diagnostic Data Last Recorded Lab Results: 08/06/25 1114 08/06/25 1114 Advance Care Planning Advanced Care plannin - 30 Minutes Problems: (1) Metabolic encephalopathy Status: Acute Additional Plan # metabolic encephalopathy # possible seizure disorder IV Rocephin and IV vancomycin to treat possible UTI Awaiting urine and blood cultures Telemedicine neurology EEG MRI of the head Fall precautions Seizure precautions # atrial fibrillation Continue propafenone and metoprolol succinate # likely UTI # leukocytosis with left shift # possible left chronic knee infection Urine culture is sent IV vancomycin and IV Rocephin # SCAR- possibly secondary to dehydration IV normal saline at 80 cc an hour and CMP is ordered # DVT prophylaxis SCDs SQ Lovenox I spent a total of 17 minutes on reviewing various resuscitative measures/ ACP with the patient at the time of admission. The patient has decided on DNR code status. Date of Service: Aug 06, 2025 Billing Provider: BABAR GUERIN DO Common Visit Codes: 41119-UQBUIAV INP/OBS CARE (HIGH) Secondary Visit Codes: 70698-CNBMUBSS CARE PLAN 30 MINUTES BABAR GUERIN DO Aug 06, 2025 16:00
[2025-08-06] MEDS: normal saline 1000ml 1,000 ML IV SCH (16:01)
[2025-08-06] MEDS: vancomycin inj. 750 MG in normal saline 250ml IV soln 250 ML IV SCH (16:02)
--- NOTE | 2025-08-06 16:26 | [facility] NEURO CONSULT REPORT ---
[facility] Procedure Note [facility] Procedure Note Consult [facility] Note # Demographics Consult Type: General Neurology Patient Location: Emergency Room First Name: LEE Last Name: NANCY Date of : 1945 Age: 80 Gender: Male Facility: [facility] Time of Initial Page (): 08/06/2025 13:26 First Contact with Site (): 08/06/2025 13:27 # HPI Chief Complaint: - dizziness - abnormal movements - altered mental state History: 80 yo M p/w worsening orthostatic hypotension, generalized weakness, slow speech, lethargy, and seizure like activities. He is on Florinef and midodrine for orthostatic hypotension and reported worsening symptoms and falls in the past 2-3 days. He had 2 occasions that he stood up and fell with convulsion of his body. The convulsion lasted about 20-30s and it took him another 30s to return to baseline and started to converse. She denied tongue biting or urinary incontinence. She also reported he had chills yesterday and worried that his chronic knee infection got worse. His speech is slow and seems more lethargic. # Scores Level of Consciousness 1a: [1] = Not alert; but arousable by minor stim LOC Questions 1b: [0] = Answers both questions correctly LOC Commands 1c: [0] = Performs both tasks correctly Best Gaze 2: [0] = Normal Visual 3: [0] = No visual loss Facial Palsy 4: [0] = Normal symmetrical movements Motor Arm Left 5a: [0] = No drift Motor Arm Right 5b: [0] = No drift Motor Leg Left 6a: [0] = No drift Motor Leg Right 6b: [0] = No drift Limb Ataxia 7: [0] = Absent Sensory 8: [0] = Normal Best Language 9: [1] = Wohi-oe-gnzgsuuu aphasia Dysarthria 10: [0] = Normal Extinction and Inattention 11: [0] = No abnormality NIHSS Total: 2 # ROS Additional: - complete review of systems otherwise negative # PMH-FH-SH Past Medical History: orthostatic hypotension, chronic back/knee pain # Data Head CT: - no bleed # Assessment Impression: - Encephalopathy - Convulsive syncope - Worsening orthostatic hypotension # Plan Blood Pressure Management: - IV fluid bolus Labs: - ua - Ammonia - B12 - comprehensive metabolic panel - CBC - TSH - Blood Cx Imaging: (urgency: routine): - MRI Brain without contrast Diagnostic Test: - EEG Therapy/Evaluation: Orthostatic VS TID Medication: Cont midodrine and Florinef. If orthostasis still + after sepsis is ruled out, can increase midodrine to 10 TID Other: - If patient has any neurological deterioration please call me back immediately - would not pursue stroke work-up if MRI is negative # Logistics Attestation of consult completion: The patient is located at: [facility]. Facility staff participated in the visit. I performed this telemedicine visit from my offsite office utilizing interactive 2 way audio and visual telecommunication technology at the request of the onsite emergency room provider. Total time spent in telemedicine encounter: I spent 24 minutes reviewing clinical data and/or imaging, obtaining history, examining the patient, communicating with the onsite care team, and in preparation of this report. # Demographics First Name: LEE Last Name: NANCY Facility: [facility] Electronically signed at 08/06/2025 16:25 ([place] Time) by Kim Dixon MD Neuro Consult Order placed for: Yes KIM DIXON MD Aug 06, 2025 16:26
[2025-08-06 17:00] VITALS: RESP 14; O2SAT 96
[2025-08-06] MEDS: lactulose 20gm/30ml cup PO SCH (17:08)
[2025-08-06] MEDS: ondansetron/PF 4mg/2ml inj IV PRN (17:08)
[2025-08-06] MEDS: CefTRIAXone/D5W-Rocephin 1gm 50 ML IV ONE (17:09)
[2025-08-06 17:15] VITALS: TEMP 98.8
[2025-08-06] MEDS: normal saline 500ml IV soln 500 ML IV ONE (17:57)
[2025-08-06 18:00] VITALS: BP 162/66; PULSE 93; RESP 14; TEMP 97.7; O2SAT 96
[2025-08-06] MEDS: propafenone 150mg tablet PO SCH (19:58)
[2025-08-06] MEDS: midodrine 5mg tablet PO SCH (19:58)
[2025-08-06] MEDS: docusate sod 100mg capsule PO SCH (19:58)
[2025-08-06] MEDS: enoxaparin 40mg/0.4ml syringe SQ SCH (19:59)
[2025-08-06] MEDS: K and/or MAG REPLACEMENT MC SCH (20:00)
[2025-08-06 22:00] VITALS: BP 172/73; PULSE 111; RESP 18; TEMP 97.8; O2SAT 98
[2025-08-07 06:00] VITALS: BP 166/62; PULSE 105; RESP 18; TEMP 97.8; O2SAT 98
[2025-08-07 06:00] LABS: CREATININE 1.94 MG/DL (0.60-1.10); TOTAL CARBON DIOXIDE 25.5 MMOL/L (24-32); eCRCL 33 ML/MIN; eGFR 33 ML/MIN
[2025-08-07 06:59] LABS: MEAN PLATELET VOLUME 7.1 FL (7.4-10.4); RED CELL DISTRIBUTION WIDTH 18.7 % (11.5-14.5)
[2025-08-07] MEDS: metoprolol succinate 25mg (24-HOUR) SR. Tablet PO SCH (08:33)
[2025-08-07] MEDS: pantoprazole 40mg Tablet.DR PO SCH (08:34)
[2025-08-07] MEDS: CefTRIAXone/D5W-Rocephin 1gm 50 ML IV SCH (08:34)
[2025-08-07 10:36] VITALS: BP 142/62; PULSE 94; RESP 20; TEMP 98.2; O2SAT 95
[2025-08-07 18:00] VITALS: BP 164/70; PULSE 84; RESP 11; TEMP 97.1; O2SAT 99
--- NOTE | 2025-08-07 18:20 | PROGRESS NOTE ---
Daily Progress Note Providers to CC ~ Antibiotic Timeout Antibiotic Ordered?: No Subjective The patient has had no further episodes of syncope or tremors and was diagnosed with convulsive syncope per Dr. Padron tele neurologist. Objective Vital Signs Date Time Temp Pulse Resp B/P (MAP) Pulse Ox O2 Delivery O2 Flow Rate FiO2 08/07/25 14:00 16 08/07/25 10:36 98.2 94 142/62 (88) 95 Room Air 08/06/25 17:00 0.0 Result Diagram: 08/07/25 0652 08/07/25 0429 Gen. No acute distress alert and oriented Lungs clear to ascultation bilaterally, no wheezes rales or rhonchi appreciated Heart normal sinus rhythm no murmurs rubs or clicks noted Abdomen soft nontender bowel sounds are normoactive Lower extremities no clubbing cyanosis, appreciated bilaterally, mild left knee edema Problem\Assessment\Plan Problems/Diagnosis: (1) Metabolic encephalopathy # metabolic encephalopathy # convulsive syncope IV Rocephin and IV vancomycin to treat possible UTI Urine culture- Gram-negative rods on the preliminary report Blood cultures- one of two are positive for Gram-negative rods Telemedicine neurologist Dr. Padron recommended EEG and MRI of the brain EEG MRI of the head Fall precautions Seizure precautions # atrial fibrillation Continue propafenone and metoprolol succinate # likely UTI # leukocytosis with left shift # possible left chronic knee infection Urine culture is positive for Gram-negative rods on preliminary report IV vancomycin and IV Rocephin # SCAR- possibly secondary to dehydration IV normal saline at 80 cc an hour and CMP is ordered # DVT prophylaxis SCDs SQ Lovenox DNR code status Awaiting physical therapy evaluation Date of Service: Aug 07, 2025 Billing Provider: BABAR GUERIN DO Common Visit Codes: [id number] INP/OBS CARE(HIGH) BABAR GUERIN DO Aug 07, 2025 18:20
[2025-08-07 22:00] VITALS: BP 168/69; PULSE 93; RESP 15; TEMP 99.1; O2SAT 96
[2025-08-08 05:33] LABS: MEAN PLATELET VOLUME 7.9 FL (7.4-10.4); RED CELL DISTRIBUTION WIDTH 18.9 % (11.5-14.5)
[2025-08-08 05:55] LABS: CREATININE 1.59 MG/DL (0.60-1.10); TOTAL CARBON DIOXIDE 24.5 MMOL/L (24-32); eCRCL 40 ML/MIN; eGFR 42 ML/MIN
[2025-08-08 06:00] VITALS: BP 170/70; PULSE 99; RESP 14; TEMP 99.9; O2SAT 96
[2025-08-08 06:23] LABS: PLATELET ESTIMATE NORMAL
--- NOTE | 2025-08-08 09:14 | BLUE SKY NEURO CONSULT REPORT ---
[facility] Procedure Note [facility] Procedure Note [facility] Note # Demographics Type of EEG Read: - Routine EEG - video Patient Location: Inpatient First Name: Dwight Last Name: Michael Date of : 1945 Age: 80 Gender: Male Facility: [facility] Time of Initial Page (): 08/07/2025 10:56 First Contact with Site (): 08/07/2025 11:59 # EEG Interpretation Start Time of EEG Read (): 08/07/2025 11:24 Stop Time of EEG Read (): 08/07/2025 11:46 Duration: 0h 22m Technical Details: - This study was recorded using the [facility] EEG software Indication: - altered mental status # Description Photic Stimulation: NOT Performed Phases Captured: - unresponsive Symmetry: symmetric Predominant Frequencies: - delta (2-3 Hz) - continuous (>90%) Superimposed Frequencies: - theta (4-7 Hz) - frequent (10-49%) Amplitude: normal Reactivity: yes Variability: no Continuity: continuous EKG: NSR # Abnormalities Epileptiform Abnormalities: - NOT present Seizure: - NOT present # Impression Impression: abnormal Diffuse Slowing # Clinical Correlation Clinical Correlation: Diffuse slowing is non-specific and may be seen in the setting of diffuse cerebral dysfunction; such as toxic/metabolic/infectious encephalopathy or heavily sedating medication use. # Logistics Telemedicine: remote EEG review: EEG reviewed remotely # Demographics First Name: Dwight Last Name: Michael Facility: [facility] Neuro Consult Order placed for: SHARMIN Dave MD Aug 08, 2025 09:14
[2025-08-08 10:00] VITALS: BP 117/48; PULSE 75; RESP 18; TEMP 97.3; O2SAT 96
[2025-08-08 10:30] VITALS: BP_SYST 109; BP_SYST 114; BP_DIAS 58; BP_DIAS 59; PULSE 103; PULSE 99
[2025-08-08 18:00] VITALS: BP 163/74; PULSE 82; RESP 16; O2SAT 98
--- NOTE | 2025-08-08 20:31 | PROGRESS NOTE ---
Daily Progress Note Providers to CC ~ Antibiotic Timeout Antibiotic Ordered?: Yes Subjective The patient remains somewhat confused his urine culture grew out Proteus mirabilis pansensitive all antibiotics other than cefazolin. The EEG was negative for seizure activity. MRI was not obtained the patient we will need rehab. Objective Vital Signs Date Time Temp Pulse Resp B/P (MAP) Pulse Ox O2 Delivery O2 Flow Rate FiO2 08/08/25 18:00 82 16 163/74 (103) 98 Room Air 0.0 08/08/25 10:00 97.3 Result Diagram: 08/08/2541608/08/25416 Gen. No acute distress alert and oriented Lungs clear to ascultation bilaterally, no wheezes rales or rhonchi appreciated Heart normal sinus rhythm no murmurs rubs or clicks noted Abdomen soft nontender bowel sounds are normoactive Lower extremities no clubbing cyanosis, appreciated bilaterally, mild left knee edema Problem\Assessment\Plan Problems/Diagnosis: (1) Metabolic encephalopathy # metabolic encephalopathy # convulsive syncope IV Rocephin and IV vancomycin to treat possible UTI Urine culture- Gram-negative rods on the preliminary report Blood cultures- one of two are positive for Gram-negative rods Telemedicine neurologist Dr. Padron recommended EEG and MRI of the brain EEG was negative for seizure activity MRI of the head is pending Fall precautions Seizure precautions # atrial fibrillation Continue propafenone and metoprolol succinate # UTI secondary to cystitis # leukocytosis with left shift # possible left chronic knee infection Urine culture is positive for Proteus mirabilis sensitive to all antibiotics other than cefazolin and will remain on Rocephin IV vancomycin and IV Rocephin Blood culture remains positive for Gram-negative rods # SCAR- secondary to dehydration/possible vasomotor nephropathy IV normal saline at 80 cc an hour and CMP is ordered Significantly improved # DVT prophylaxis SCDs SQ Lovenox DNR code status Disposition: Patient remains significantly weak and is requiring significant assitance with ambulation. Case management is working on rehab placement Date of Service: Aug 08, 2025 Billing Provider: BABAR GUERIN DO Common Visit Codes: [id number] INP/OBS CARE(HIGH) BABAR GUERIN DO Aug 08, 2025 20:30
[2025-08-08 22:00] VITALS: BP_SYST 150; BP_SYST 157; BP_SYST 181; BP_DIAS 64; BP_DIAS 65; BP_DIAS 74; PULSE 81; PULSE 82; PULSE 87; PULSE 94; RESP 14; TEMP 97.5; O2SAT 98
[2025-08-09] VITALS (10 sets, daily range): BP systolic 91–206; BP diastolic 37–84; PULSE 64–92; RESP 14–18; TEMP 97.5–99.1; O2SAT 97–100
[2025-08-09] MEDS: hydrALAZINE 20mg/ml inj. IV PRN (00:47)
[2025-08-09] MEDS: normal saline 1000ml 1,000 ML IV SCH (03:15)
[2025-08-09] MEDS: hydrALAZINE 20mg/ml inj. IV ONE (03:21)
[2025-08-09 06:15] LABS: MEAN PLATELET VOLUME 7.6 FL (7.4-10.4); RED CELL DISTRIBUTION WIDTH 19.0 % (11.5-14.5)
[2025-08-09 06:34] LABS: CREATININE 1.35 MG/DL (0.60-1.10); TOTAL CARBON DIOXIDE 24.9 MMOL/L (24-32); eCRCL 47 ML/MIN; eGFR 51 ML/MIN
--- NOTE | 2025-08-09 11:46 | RADIOLOGY REPORT ---
MR MRI HEAD INDICATION: Altered mental status EXAM DATE: 08/09/2025 10:45 AM COMPARISON: CT CT HEAD on DOS: 08/06/25 PROCEDURE: Using a 1.5 Yen scanner, multisequence multiplanar imaging of the brain was obtained. FINDINGS: There is sulcal and ventricular prominence. The brain otherwise shows normal morphology and signal characteristics. No abnormal T2 hyperintensity, diffusion restriction, or susceptibility hypointensity is present. The ventricles are normal in size. The midline structures are intact. The major intracranial flow voids are present. Likely chronic sinusitis of the right maxillary sinus. The orbital contents and extracranial soft tissues appear normal. IMPRESSION: Unremarkable MRI findings of the brain.
[2025-08-09] MEDS ORDERED: VANCOMYCIN LEVEL IV ONE (13:30)
[2025-08-09] MEDS: lactulose 20gm/30ml cup PO SCH (14:18)
[2025-08-09] MEDS: polyethylene glycol 3350 17gm powd pack PO SCH (20:02)
--- NOTE | 2025-08-09 20:16 | PROGRESS NOTE ---
Daily Progress Note Providers to CC ~ Antibiotic Timeout Antibiotic Ordered?: Yes Subjective The patient is MRI of his brain was unremarkable, the patient had a adverse reaction to ciprofloxacin where he had intractable nausea and vomiting, I discussed the blood culture results with Dr Corinne Aragon DO Infectious Disease who recommended trying p.o. levofloxacin for which the patient had one dose so far and is tolerating this medication well. Objective Vital Signs Date Time Temp Pulse Resp B/P (MAP) Pulse Ox O2 Delivery O2 Flow Rate FiO2 08/09/25 20:03 16 08/09/25 10:00 97.6 81 128/59 (82) 97 Room Air 08/08/25 20:00 0.0 Result Diagram: 08/09/25 0545 08/09/25 0545 Gen. No acute distress alert and oriented Lungs clear to ascultation bilaterally, no wheezes rales or rhonchi appreciated Heart normal sinus rhythm no murmurs rubs or clicks noted Abdomen soft nontender bowel sounds are normoactive Lower extremities no clubbing cyanosis, appreciated bilaterally, mild left knee edema Problem\Assessment\Plan Problems/Diagnosis: (1) Metabolic encephalopathy # metabolic encephalopathy # convulsive syncope IV Rocephin and IV vancomycin to treat possible UTI Urine culture- Gram-negative rods on the preliminary report Blood cultures- one of two are positive for Gram-negative rods Telemedicine neurologist Dr. Padron recommended EEG and MRI of the brain EEG was negative for seizure activity Fall precautions Seizure precautions 08/09 Continues to have orthostatic hypotension which is chronic. MRI of the head is unremarkable # atrial fibrillation Continue propafenone and metoprolol succinate # UTI secondary to cystitis # leukocytosis with left shift # possible left chronic knee infection # bacteremia Urine culture and blood cultures are positive for Proteus mirabilis sensitive to all antibiotics other than cefazolin 08/09 discussed the case with Dr Corinne Aragon DO Infectious Disease who recommended a trial of p.o. levofloxacin (the patient is intolerant to ciprofloxacin and had intractable nausea and vomiting) for which the patient tolerated the medication well so far # SCAR- secondary to dehydration/possible vasomotor nephropathy IV normal saline at 80 cc an hour and CMP is ordered 08/09 continues to improve daily # DVT prophylaxis SCDs SQ Lovenox DNR code status Disposition: Discharged to [facility] post acute rehab tomorrow Date of Service: Aug 09, 2025 Billing Provider: BABAR GUERIN DO Common Visit Codes: [id number] INP/OBS CARE(HIGH) BABAR GUERIN DO Aug 09, 2025 20:16
[2025-08-09] MEDS: HYDROcodone/acetaminophen 5mg/325mg tablet PO PRN (22:31)
[2025-08-10] VITALS (7 sets, daily range): BP systolic 143–201; BP diastolic 60–83; PULSE 71–99; RESP 14–20; TEMP 97.6–98.2; O2SAT 98–99
[2025-08-10 05:20] LABS: MEAN PLATELET VOLUME 7.7 FL (7.4-10.4); RED CELL DISTRIBUTION WIDTH 18.9 % (11.5-14.5)
[2025-08-10 06:03] LABS: CREATININE 1.19 MG/DL (0.60-1.10); TOTAL CARBON DIOXIDE 23.4 MMOL/L (24-32); eCRCL 53 ML/MIN; eGFR 59 ML/MIN
[2025-08-10] MEDS ORDERED: midodrine 5mg tablet PO PRN (10:35)
[2025-08-10] MEDS: mineral oil 133ml enema RC PRN (10:48)
[2025-08-10] MEDS ORDERED: POTASSIUM CHLORIDE 20 MEQ/15 ML oral solution PO ONE (11:55)
[2025-08-10] MEDS: levoFLOXACIN-Levaquin 250mg/D5 50 ML IV ONE (12:06)
[2025-08-10] MEDS: potassium Cl 20 mEq SR tablet PO STA (12:17)
--- NOTE | 2025-08-10 13:10 | RADIOLOGY REPORT ---
Date: 08/10/2025 12:38 PM Examination: DI ABDOMEN,SINGLE VIEW(KUB) History: constipation and lennie emesis Comparison: US ULTRASOUND OF ABDOMEN on DOS: 06/20/25, CT CT ABDOMEN PELVIS on DOS: 06/20/25 TECHNIQUE: Frontal views of the abdomen was obtained. FINDINGS: Bowel gas pattern is unremarkable. Large stool burden. The lung bases demonstrate bibasilar opacities and possible small pleural effusion. No acute osseous abnormality identified. IMPRESSION: Nonobstructive bowel gas pattern. Large stool burden.
[2025-08-10] MEDS: bisacodyl 10mg suppository rectal RC PRN (13:40)
[2025-08-10] MEDS ORDERED: magnesium sulf-water 4G/100mL 100 ML IV PRN (16:30)
[2025-08-10] MEDS ORDERED: potassium Cl 40MEQ/1/2NS 520ml 520 ML IV PRN (16:30)
[2025-08-10] MEDS ORDERED: potassium Cl 20 mEq SR tablet PO PRN (16:30)
[2025-08-10] MEDS ORDERED: magnesium sulf-water 2g/50mL 50 ML IV PRN (16:30)
--- NOTE | 2025-08-10 19:00 | PROGRESS NOTE ---
Daily Progress Note Providers to CC ~ Antibiotic Timeout Antibiotic Ordered?: Yes Subjective The patient became nauseated and vomited this morning for which the attributed was secondary to p.o. Levaquin we did a trial of IV Levaquin today and the patient has so far has tolerated this without any GI upset. The patient is rather constipated on KUB and that has since had bowel movements with a an enema and suppository on board. The patient was upset he wanted to leave and come back tomorrow which I informed him he can not just leave and come back and would have to go back to the ER. The patient's blood pressure is elevated this afternoon after IV hydralazine 191/ I have ordered a one time dose of p.o. amlodipine Objective Vital Signs Date Time Temp Pulse Resp B/P (MAP) Pulse Ox O2 Delivery O2 Flow Rate FiO2 08/10/25 17:51 83 08/10/25 17:39 15 08/10/25 10:30 98.2 171/67 (101) 99 Room Air 08/08/25 20:00 0.0 Result Diagram: 08/10/2540308/10/25403 Gen. No acute distress alert and oriented Lungs clear to ascultation bilaterally, no wheezes rales or rhonchi appreciated Heart normal sinus rhythm no murmurs rubs or clicks noted Abdomen soft nontender bowel sounds are normoactive Lower extremities no clubbing cyanosis, appreciated bilaterally, mild left knee edema Problem\Assessment\Plan Problems/Diagnosis: (1) Metabolic encephalopathy # metabolic encephalopathy # convulsive syncope IV Rocephin and IV vancomycin to treat possible UTI Urine culture- Gram-negative rods on the preliminary report Blood cultures- one of two are positive for Gram-negative rods Telemedicine neurologist Dr. Padron recommended EEG and MRI of the brain EEG was negative for seizure activity Fall precautions Seizure precautions 08/09 Continues to have orthostatic hypotension which is chronic. MRI of the head is unremarkable # atrial fibrillation Continue propafenone and metoprolol succinate # UTI secondary to cystitis # leukocytosis with left shift # possible left chronic knee infection # bacteremia Urine culture and blood cultures are positive for Proteus mirabilis sensitive to all antibiotics other than cefazolin 08/09 discussed the case with Dr Corinne Aragon DO Infectious Disease who recommended a trial of p.o. levofloxacin (the patient is intolerant to ciprofloxacin and had intractable nausea and vomiting) for which the patient tolerated the medication well so far 08/10 the patient had episode of emesis this morning which the attributed was secondary to p.o. Levaquin. Trial of IV Levaquin today so far the patient is doing well without any GI upset # SCAR- secondary to dehydration/possible vasomotor nephropathy IV normal saline at 80 cc an hour and CMP is ordered 08/09 continues to improve daily 08/10 continues to improve # constipation KUB demonstrates large stool burden Enema and suppository were administered and the patient has had two bowel movements since # DVT prophylaxis SCDs SQ Lovenox DNR code status Disposition: Discharged to [facility] post acute rehab tomorrow Date of Service: Aug 10, 2025 Billing Provider: BABAR GUERIN DO Common Visit Codes: [id number] INP/OBS CARE(HIGH) BABAR GUERIN DO Aug 10, 2025 19:00
[2025-08-11 04:42] LABS: MEAN PLATELET VOLUME 7.1 FL (7.4-10.4); RED CELL DISTRIBUTION WIDTH 18.5 % (11.5-14.5)
[2025-08-11 04:47] VITALS: BP_SYST 126; BP_SYST 155; BP_SYST 162; BP_DIAS 53; BP_DIAS 66; BP_DIAS 71; PULSE 91; PULSE 95; PULSE 99
[2025-08-11 05:08] LABS: CREATININE 1.08 MG/DL (0.60-1.10); TOTAL CARBON DIOXIDE 24.1 MMOL/L (24-32); eCRCL 58 ML/MIN; eGFR 66 ML/MIN
[2025-08-11 06:00] VITALS: BP 162/66; PULSE 91; RESP 14; TEMP 98.1; O2SAT 98
[2025-08-11] MEDS: potassium Cl 20 mEq SR tablet PO PRN (07:37)
[2025-08-11 08:47] VITALS: RESP 14; O2SAT 98
[2025-08-11] MEDS ORDERED: MIDO5TAB4 PO (08:50)
[2025-08-11 10:39] VITALS: RESP 15
--- NOTE | 2025-08-11 19:55 | DISCHARGE SUMMARY ---
Discharge Summary Providers to CC ~ Discharge Summary Admission Diagnosis: encephalopathy Hospital Course DATE OF ADMISSION: 08/06/2025 DATE OF DISCHARGE: 08/11/2025 Discharge Diagnosis\Comment: Metabolic encephalopathy secondary to UTI/Proteus mirabilis bacteremia, convulsive syncope, permanent atrial fibrillation, constipation, SCAR secondary to dehydration/possible vasomotor nephropathy Operations\Procedures: None Consultants: Telemedicine neurology Dr. Padron, EEG specialist Dr. Goldsmith Complications: None Condition on DC: Stable New Medications: Midodrine HCl (Midodrine HCl) 5 Mg Tablet 5 MG PO Q12H PRN for HYPOTENSION, #60 TAB Continued Medications: Ferrous Sulfate (Ferrous Sulfate) 325 Mg (65 Mg Iron) Tablet 1 TAB PO Q12H, TAB 0 Refills Fludrocortisone Acetate* (Florinef*) 0.1 Mg Tablet 1 TAB PO BID for 30 Days, #30 TAB Fluticasone Propion/Salmeterol (Wixela 250-50 Inhub) 250 Mcg-50 Mcg/Dose Blst.w.dev Furosemide 40 MG (Lasix) 40 Mg Tablet 1 TAB PO DAILY, TAB Ketoconazole (Ketoconazole) 2 % Cream..g. 1 APPLIC TOP PRN, GM 0 Refills apply to affected area(s) Lactobacillus Acidophilus (Probiotic) 10 Billion Cell Capsule 1 CAP PO DAILY, CAP 0 Refills Lactulose (Lactulose) 10 Gram/15 Ml Solution 30 ML PO TID, ML 0 Refills Metoclopramide Hcl* (Metoclopramide Hcl*) 10 Mg Tablet 1 TAB PO CC, TAB Metoprolol Succinate (Metoprolol Succinate) 25 Mg Tab.sr.24h 0.5 TAB PO DAILY, TAB 0 Refills Ondansetron HCl (Ondansetron HCl) 4 Mg Tablet 1 TAB PO PRN PRN for nausea/vomiting, TAB 0 Refills Oxycodone HCl/Acetaminophen (Percocet 10-325 mg Tablet) 1 Each Tablet 1 TAB PO 5XD PRN for moderate or severe pain MDD 4 Tablet(s) for 5 Days, #20 TAB 0 Refills Pantoprazole Sodium (PROTONIX tablet) 40 Mg Tablet.dr 1 TAB PO DAILY, TAB 0 Refills Propafenone HCl (Propafenone HCl) 300 Mg Tablet 1 TAB PO BID Sertraline Hcl (Zoloft) 100 Mg Tablet 1 TAB PO DAILY for 30 Days, #30 TAB 0 Refills Discontinued Medications: Midodrine HCl (Midodrine HCl) 5 Mg Tablet 1 TAB PO Q12H, TAB 0 Refills Discharge Summary: I admitted Mr. Rodriguez with the following HPI:This is an 80-year-old male with a history of orthostatic hypotension and possible pots presents to ED for generalized weakness and possible acute seizure activity. The patient's has not noticed this morning that the patient appear confused and was experiencing generalized tremors and post tremors was confused for approximately 20 seconds. 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 The patient is unable to ambulate currently the assessed that the patient now is at his cognitive baseline. The patient is urinalysis is consistent with a UTI and the patient is started with IV Rocephin and IV vancomycin. The patient's informs me that the patient has a chronic left knee infection and was scheduled to have the knee implant to be removed in May however orthopedic surgeon who was concerned the patient has strong enough at that time to have surgery. Patient has a EEG that has negative for seizure the tele neurologist Dr. Padron assessed that the patient had a convulsive syncope the patient has underlining significant orthostatic hypotension at baseline- the patient had no seizure activity during hospitalization however the patient has a both a urine and blood culture grew out Proteus mirabilis sensitive to all antibiotics other than cefazolin and speaking with Dr Corinne Aragon DO Infectious Disease fluoroquinolone is the recommended treatment the patient initially tolerated a p.o. levofloxacin however had an episode of emesis that the attributed was a adverse reaction to levofloxacin we did try IV levofloxacin and the patient tolerated IV levofloxacin without any adverse reaction and that is the patient will be continued on levofloxacin IV 500 mg daily for an additional 12 days to complete a two week course. The patient has acute kidney injury with a creatinine of 1.92 on admission by the day of discharge his creatinine was 1.08 and thus is SCAR had resolved. The patient has significantly elevated blood pressure and midodrine was discontinued. The patient has permanent atrial fibrillation and remains on metoprolol succinate. Gen. No acute distress alert and oriented Lungs clear to ascultation bilaterally, no wheezes rales or rhonchi appreciated Heart normal sinus rhythm no murmurs rubs or clicks noted Abdomen soft nontender bowel sounds are normoactive Lower extremities no clubbing cyanosis, appreciated bilaterally, mild left knee edema The patient felt ready to be discharged and was medically cleared to be discharged to [facility] post acute rehab on 08/11/2025 The patient was seen and evaluated on day of discharge. Time spent on discharge 35 minutes *Problems/Diagnosis: (1) Metabolic encephalopathy Status: Acute Total Time Spent on D/C: > 30 Minutes Date of Service: Aug 11, 2025 Billing Provider: BABAR GUERIN DO Common Visit Codes: [id number] DISCH DAY >30min BABAR GUERIN DO Aug 11, 2025 19:51
== END 2025-08-11 12:20 | DRG 70 ==
LOC: ER 10:50 → ED HOLD 13:04 → UNDOADMIN 13:04 → ED HOLD 13:14 → ORTHO 4S 15:00
PROVIDERS: ADMIT Nurse Practitioner Family; ATTEND Nurse Practitioner Family
PROC: 4A00X4Z Measurement of Central Nervous Electrical Activity, External Approach (ICD-10-PCS; principal; 2025-08-07)
DX: G93.41 Metabolic encephalopathy (principal); N17.0 Acute kidney failure with tubular necrosis; I48.21 Permanent atrial fibrillation; R78.81 Bacteremia; M00.9 Pyogenic arthritis, unspecified; N30.90 Cystitis, unspecified without hematuria; E86.0 Dehydration; K59.00 Constipation, unspecified; G89.29 Other chronic pain; M54.2 Cervicalgia; M54.9 Dorsalgia, unspecified; B96.4 Proteus (mirabilis) (morganii) as the cause of diseases classified elsewhere; Z66 Do not resuscitate; Z80.3 Family history of malignant neoplasm of breast; Z85.118 Personal history of other malignant neoplasm of bronchus and lung; Z85.46 Personal history of malignant neoplasm of prostate; Z87.442 Personal history of urinary calculi; Z88.0 Allergy status to penicillin; Z88.2 Allergy status to sulfonamides; Z88.3 Allergy status to other anti-infective agents; Z90.5 Acquired absence of kidney; Z98.1 Arthrodesis status
CPT/HCPCS: 36410; 36415; 70450; 70551; 71045; 72125; 74018; 76937; 80048; 80053; 81001; 82140; 83605; 83735; 83880; 84443; 84484; 85008; 85025; 87040; 87077; 87081; 87088; 87186; 93005; 95816; 96374; 97116; 97161; 97530; 99285; A6590; C1751; G0378; J0360; J0696; J1650; J1956; J2405; J3010; J3373; J7030; J7040; J7050

== ENCOUNTER 2025-08-17 10:47 | Emergency (ER) | payer OTHER, MEDICARE ==
[~2025-08-17] VITALS: Ht 185.4 cm; Wt 80.9 kg
[~2025-08-17 10:47] MED LIST changes: -ASPI1TAB2 PO; -CITA40TA22 PO; -FLUD0.1T PO; +FLUD0.1T2 PO; +FLUT1BLS10; -LIDO15CR15 TOP; -LIDO1ADH78 TOP; +SERT100T PO; -[UNRECOGNIZED DRUG - CODE] RC
[2025-08-17 11:36] LABS: MEAN PLATELET VOLUME 7.0 FL (7.4-10.4); RED CELL DISTRIBUTION WIDTH 18.9 % (11.5-14.5)
[2025-08-17 11:52] LABS: CREATININE 1.11 MG/DL (0.60-1.10); TOTAL CARBON DIOXIDE 35.4 MMOL/L (24-32); eCRCL 59 ML/MIN; eGFR 64 ML/MIN
[2025-08-17] MEDS: potassium Cl 20 mEq SR tablet PO STA (12:08)
--- NOTE | 2025-08-17 12:38 | RADIOLOGY REPORT ---
DI CHEST,SINGLE VIEW, HISTORY: CHECK PLACEMENT OF PREVIOUSLY PLACED MIDLINE. COMPARISON: ANGIO LINE PLACEMENT(PICC NURSE) on DOS: 08/11/25, DI CHEST,SINGLE VIEW on DOS: 08/06/25 ANGIO LINE PLACEMENT(PICC NURSE) on DOS: 08/11/25, DI CHEST,SINGLE VIEW on DOS: 08/06/25 TECHNICAL DATA: 1 view of the chest was obtained. FINDINGS: Lines and tubes: A cardiac pacer is noted. No midline is present. Cardiomediastinal silhouette: normal Pulmonary vasculature: Prominent. Lung expansion: normal Lung airspace: normal Lung interstitium: normal Pleura: normal Pneumothorax: no Bones: Unremarkable Other: no IMPRESSION: Pulmonary vascular congestion.
--- NOTE | 2025-08-17 13:04 | ELECTROCARDIOGRAPH REPORT ---
[facility] Test Date: 2025-08-17 Test Time: 11:19:06 Pat Name: LEE CRUZ Department: EMERGENCY ROOM Room: Gender: M Flow Coordinator: : 1945 Requested By: UVALDO SU Order Number: [id number] Reading MD: Dr. Roman Godoy Measurements Intervals [place] Rate: 89 P: 0 CO: 163 QRS: 9 QRSD: 83 T: -80 QT: 421 QTc: 513 Interpretive Statements A-V dual-paced complexes w/ some inhibition No further analysis attempted due to paced rhythm Electronically Signed On 08-23-2025 20:45:[address] Roman Godoy Please click the below link to view image of tracing.
--- NOTE | 2025-08-17 13:21 | Physician Documentation ---
History of Present Illness ~ General Chief Complaint: Abnormal Lab(s) Stated Complaint: ABNORMAL LABS Time Seen by MD: 11:52 Primary Medical Doctor: Nia Mode of Arrival: Wheelchair History of Present Illness Initial Comments Patient comes into the ED today for concerns over severely low potassium which was discovered at the [facility] this morning. Patient does take Lasix and an unfortunately potassium was not ordered when he was DC from [facility] on Friday for urosepsis. Patient is currently asymptomatic and has no complaints. patient has chronic renal disease and is monitored for elevations in decreases in his potassium Medication Reconciliation Allergies: Coded Allergies: ampicillin (Verified Allergy, Intermediate, RASH, 08/17/25) sulfamethoxazole (Verified Allergy, Intermediate, N/V RASH, 08/17/25) trimethoprim (Verified Allergy, Intermediate, N/V RASH, 08/17/25) ciprofloxacin (Unverified Allergy, Unknown, 08/17/25) cephalexin (Unverified Adverse Reaction, Intermediate, PROJECTILE VOMITING, 08/17/25) Scheduled Ferrous Sulfate (Ferrous Sulfate), 1 TAB PO Q12H, (Reported) Fludrocortisone Acetate* (Florinef*), 1 TAB PO BID, (Reported) Furosemide 40 MG (Lasix), 1 TAB PO DAILY, (Reported) Ketoconazole (Ketoconazole), 1 APPLIC TOP PRN, (Reported) Lactobacillus Acidophilus (Probiotic), 1 CAP PO DAILY, (Reported) Lactulose (Lactulose), 30 ML PO TID, (Reported) Metoclopramide Hcl* (Metoclopramide Hcl*), 1 TAB PO CC, (Reported) Metoprolol Succinate (Metoprolol Succinate), 0.5 TAB PO DAILY, (Reported) Pantoprazole Sodium (PROTONIX tablet), 1 TAB PO DAILY, (Reported) Propafenone HCl (Propafenone HCl), 1 TAB PO BID, (Reported) Sertraline Hcl (Zoloft), 1 TAB PO DAILY, (Reported) Scheduled PRN Midodrine HCl (Midodrine HCl), 5 MG PO Q12H PRN for HYPOTENSION Ondansetron HCl (Ondansetron HCl), 1 TAB PO PRN PRN for nausea/vomiting, (Reported) Oxycodone HCl/Acetaminophen (Percocet 10-325 mg Tablet), 1 TAB PO 5XD PRN for moderate or severe pain, (Reported) Miscellaneous Medications Fluticasone Propion/Salmeterol (Wixela 250-50 Inhub), (Reported) Discontinued Medications Midodrine HCl (Midodrine HCl), 1 TAB PO Q12H, (Reported) Past Medical History Past Medical History: Atrial Fibrillation, Kidney Stones, Renal Disease, Chronic Back Pain, Lung Cancer Past Surgical History: abdominal surgery, appendectomy, other Other Past Surgical History: prostate sx, urostomy Patient History: FH: breast cancer Sister FH: dementia FATHER Ischemic bowel disease MOTHER Alcohol Use: None Drug Use: none Lives with: Spouse Lives In: Home Occupation: disabled Review of Systems All Other Systems at this time: Reviewed and Negative ROS As stated above in the HPI, otherwise all systems are reviewed and negative. Physical Exam Physical Exam Vital Signs: Temperature: 98.3, Source: Oral, Heart Rate: 86, Respiratory Rate: 17, BP: 186/86, Pulse Oximetry: 98, Weight: 80.900 Progress Results/Orders Results/Orders Orders - UVALDO SU SUPER[employer] Chest,Single View (08/17/25 12:16) K And/Or Mag Replacement (K And/Or Mag R (08/17/25 13:45) K (08/18/25 03:00) K (08/19/25 03:00) K (08/20/25 03:00) K (08/21/25 03:00) K (08/22/25 03:00) K (08/23/25 03:00) K (08/24/25 03:00) Potassium Cl Sr Tablet (K-Dur Tablet) (08/17/25 13:45) Potassium Cl Sr Tablet (K-Dur Tablet) (08/17/25 13:45) MG (08/18/25 03:00) MG (08/19/25 03:00) MG (08/20/25 03:00) MG (08/21/25 03:00) MG (08/22/25 03:00) Magnesium Sulf-Water 2g/50ml (Magnesium (08/17/25 13:45) Magnesium Sulf-Water 4g/100ml (Magnesium (08/17/25 13:45) K (08/17/25 17:33) Completed Orders - UVALDO SU [employer] Potassium Cl Sr Tablet (K-Dur Tablet) (08/17/25 12:02) Potassium Cl Inj (Potassium Cl Inj) (08/17/25 12:05) Chest,Single View (08/17/25 12:16) Electrocardiogram (08/17/25 ) Medications Received in ER Medications (Trade) Dose Ordered Sig/Allyn Route PRN Reason Start Time Stop Time Status Last Admin Dose Admin (K-DUR tablet) 40 meq ONCE STAT PO 08/17/25 12:02 08/17/25 12:04 DC 08/17/25 12:08 40 MEQ Potassium Chloride 40 meq/ Sodium Chloride 520 ml @ 130 mls/hr ONCE ONCE IV 08/17/25 12:05 08/17/25 16:04 DC 08/17/25 13:36 130 MLS/HR Vital Signs 08/17/25 08/17/25 08/17/25 08/17/25 11:22 11:34 11:43 13:38 Temp 97.8 98.3 Pulse 94 86 88 Resp 18 17 17 20 B/P (MAP) 153/63 186/86 (119) 173/72 (105) Pulse Ox 98 98 98 08/17/25 17:04 Temp 98.3 Pulse 79 Resp 24 B/P (MAP) 172/61 (98) Pulse Ox 98 O2 Flow Rate 0 Laboratory Tests Test 08/17/25 11:27 08/17/25 17:52 White Blood Count 10.9 Red Blood Count 3.96 L Hemoglobin 10.4 L Hematocrit 32.0 L Mean Corpuscular Volume 80.7 Mean Corpuscular Hemoglobin 26.2 L Mean Corpuscular Hemoglobin Concent 32.4 L Red Cell Distribution Width 18.9 H Platelet Count 332 Mean Platelet Volume 7.0 L Neutrophils (%) (Auto) 77.5 H Lymphocytes (%) (Auto) 13.5 L Monocytes (%) (Auto) 7.8 Eosinophils (%) (Auto) 0.6 Basophils (%) (Auto) 0.6 Neutrophils # (Auto) 8.5 H Lymphocytes # (Auto) 1.5 Monocytes # (Auto) 0.8 Eosinophils # (Auto) 0.1 Basophils # (Auto) 0.1 CBC Comment Sodium Level 146 H Potassium Level 2.4 *L Chloride Level 104 Carbon Dioxide Level 35.4 H Anion Gap 7 L Blood Urea Nitrogen 15 Creatinine 1.11 H Estimated GFR/1.73 m2 64 BUN/Creatinine Ratio 13.5 Glucose Level 141 H Calcium Level 8.1 L Total Bilirubin 0.3 Aspartate Amino Transf (AST/SGOT) 20 Alanine Aminotransferase (ALT/SGPT) 18 Alkaline Phosphatase 69 Total Protein 7.7 Albumin 2.3 L Globulin 5.4 H Albumin/Globulin Ratio 0.4 L Chemistry Comments Medical Decision Making Additional information obtaine: old records, PCP Findings 80-year-old male came in for critically low potassium which is likely secondary to him not receiving supplemental potassium while taking Lasix. He has been in the ED for an extended period receiving IV infusion potassium and oral. I did offer hospitalization considering his diminished electrolytes however he and his adamantly declined Differential Diagnosis v Departure Disposition: HOME / SELF CARE / HOMELESS Impression: Primary Impression: Abnormal laboratory test result Additional Impression: Hypokalemia Condition: Stable Referrals: NO PRIMARY CARE PROVIDER (PCP) Prescriptions Potassium Chloride* (K-Dur*) 20 Meq Tab.prt.sr 1 TAB PO Q12H for 30 Days, #60 TAB Prov: [employer]VALDO SU [employer] 08/17/25 Signature Scribe Signature: h Attestation: Scribed for Uvaldo Su Cryptologist by Uvaldo Su - KASHIF . 08/17/25 13:20 [employer] Aug 17, 2025 13:21
[2025-08-17] MEDS: Potassium Cl inj 40 MEQ in sodium chloride 0.45% 500ml 500 ML IV ONE (13:36)
[2025-08-17] MEDS ORDERED: magnesium sulf-water 4G/100mL 100 ML IV PRN (13:45)
[2025-08-17] MEDS ORDERED: potassium Cl 20 mEq SR tablet PO PRN ×2 (13:45)
[2025-08-17] MEDS ORDERED: magnesium sulf-water 2g/50mL 50 ML IV PRN (13:45)
[2025-08-17] MEDS ORDERED: K and/or MAG REPLACEMENT MC SCH (13:45)
[2025-08-17 17:04] VITALS: BP 172/61; PULSE 79; RESP 24; O2SAT 98
[2025-08-17] MEDS ORDERED: POTA-207 PO (18:40)
[2025-08-17 19:08] VITALS: TEMP 98.3
== END 2025-08-17 19:15 | disposition home or self-care (01) ==
LOC: ER 10:47
DX: R79.9 Abnormal finding of blood chemistry, unspecified (principal); E87.6 Hypokalemia; G89.29 Other chronic pain; I48.91 Unspecified atrial fibrillation; N18.9 Chronic kidney disease, unspecified; Z85.118 Personal history of other malignant neoplasm of bronchus and lung; Z87.442 Personal history of urinary calculi; Z88.1 Allergy status to other antibiotic agents; Z88.2 Allergy status to sulfonamides; Z88.8 Allergy status to other drugs, medicaments and biological substances; Z90.49 Acquired absence of other specified parts of digestive tract; Z95.0 Presence of cardiac pacemaker; Z79.899 Other long term (current) drug therapy
CPT/HCPCS: 36415; 71045; 80053; 84132; 85025; 93005; 96365; 96366; 99285; J3480; J3490